=== PATIENT | female | born 1950 | race African-American/Black ===

== ENCOUNTER 2017-01-20 06:46 | Inpatient (IN) | payer MEDICARE, MEDICAID ==
[2017-01-20] VITALS (8 sets, daily range): BP systolic 115–154; BP diastolic 75–92
[~2017-01-20] VITALS: Ht 154.9 cm; Wt 60.0 kg
[~2017-01-20 06:46] MED LIST: AMLO10TA4 PO
[2017-01-20] MEDS ORDERED: ALBUTEROL (0.083%) 2.5MG/3ML NEB HHN STA (06:49)
[2017-01-20] MEDS ORDERED: SODIUM CHLORIDE 0.9% 1,000 ML IV ONE (06:49)
[2017-01-20] MEDS ORDERED: IPRATROPIUM BROMIDE (0.02%) 0.5MG/2.5ML NEB HHN STA (06:49)
[2017-01-20] MEDS ORDERED: METHYLPREDNISOLONE SOD SUCC 125 MG/2 ML VIAL IV STA (06:49)
[2017-01-20] MEDS ORDERED: METHYLPREDNISOLONE SOD SUCC 125 MG/2 ML VIAL ONE (06:55)
[2017-01-20] MEDS ORDERED: IPRATROPIUM/ALBUTEROL 0.5-3(2.5)MG/3ML NEB ONE (06:58)
[2017-01-20] MEDS ORDERED: EPINEPHRINE 1:1000 1 MG/ML AMP IM ONE (07:00)
[2017-01-20] MEDS ORDERED: MAGNESIUM 2 G PREMIX 50 ML IV ONE (07:00)
[2017-01-20 07:17] LABS: BASOPHILS % 1.3 % (0.0-2.0); EOSINOPHILS % 4.9 % (0.0-5.0); HEMATOCRIT. 37.6 % (36.0-48.0); LYMPHOCYTES % 15.4 % (20.0-50.0); MEAN CORPUSCULAR HEMOGLOBIN 26.6 pg (28.0-32.0); MEAN CORPUSCULAR VOLUME 83.8 fL (81.0-99.0); MEAN PLATELET VOLUME 9.3 fl (7.4-10.4); MONOCYTES % 7.9 % (2.0-8.0); NEUTROPHILS % 70.5 % (40.0-76.0); PLATELET 213 x1000/uL (130-400); RED BLOOD CELL COUNT 4.49 mill/uL (4.2-5.4); RED CELL DISTRIBUTION WIDTH 15.9 % (11.6-14.6)
[2017-01-20 07:25] LABS: PARTIAL THROMBOPLASTIN TIME 28.4 sec (24.0-34.0); PROTHROMBIN TIME 10.7 sec
[2017-01-20 07:30] LABS: CARBON DIOXIDE 29 mEq/L (21-32); CHLORIDE 101 mEq/L (98-107)
[2017-01-20 07:34] LABS: TROPONIN I < 0.02 ng/mL (0.00-0.04)
[2017-01-20 07:37] LABS: BG BASE EXCESS -1.3 mmol/L (-2.0-2.0); BG BILEVEL POS AIRWAY PRESSURE 15/5; BG CARBOXYHEMOGLOBIN 0.3 % (0.5-1.5); BG DEOXYHEMOGLOBIN 1.8 % (0.0-5.0); BG HCO3 ACT 26.9 mmol/L (22.0-26.0); BG METHEMOGLOBIN 0.1 % (0.0-1.5); BG OXYGEN SATURATION 98.2 % (92.0-98.5); BG OXYHEMOGLOBIN 97.8 % (94.0-97.0); BG PCO2 61.4 mmHg (35.0-45.0); BG PH 7.259 (7.350-7.450); BG PO2 124.7 mmHg (75.0-100.0); BG SAMPLE SITE RIGHT RADIAL; BG TOTAL HEMOGLOBIN 12.9 g/dL (12.0-18.0); BG VENT MODE MASK - BIPAP; BG VENT RATE 18 set
[2017-01-20] MEDS ORDERED: IPRATROPIUM/ALBUTEROL 0.5-3(2.5)MG/3ML NEB INH PRN (10:45)
[2017-01-20] MEDS ORDERED: HYDROMORPHONE HCL/PF 2MG/ML CPJ IV PRN (10:45)
[2017-01-20] MEDS ORDERED: ACETAMINOPHEN 325MG TABLET PO PRN (10:45)
[2017-01-20] MEDS ORDERED: CLONIDINE 0.1MG TABLET PO PRN (10:45)
[2017-01-20] MEDS ORDERED: DOCUSATE SODIUM 100MG CAPSULE PO PRN (10:45)
[2017-01-20] MEDS ORDERED: NA PHOS,M-B/NA PHOS,DI-BA ENEMA 118ML PR PRN (10:45)
[2017-01-20] MEDS ORDERED: ONDANSETRON HCL 4MG/2ML VIAL IV PRN (10:45)
[2017-01-20] MEDS ORDERED: MAGNESIUM/ALUMINUM HYDROXIDE/SIMETHICONE 30ML UDC PO PRN (10:45)
[2017-01-20] MEDS ORDERED: LEVOFLOXACIN 500MG PREMIX 100 ML IV NR (12:00)
[2017-01-20] MEDS: SODIUM CHLORIDE 0.45% 1,000 ML IV SCH (12:17)
[2017-01-20] MEDS: METHYLPREDNISOLONE SOD SUCC 125 MG/2 ML VIAL IV SCH ×3 (12:27→23:31)
[2017-01-20] MEDS: ENOXAPARIN 30MG/0.3ML SYR SUBCUT SCH (12:28)
[2017-01-20] MEDS: FAMOTIDINE 20MG/2ML VIAL IV SCH (12:29)
[2017-01-20] MEDS: BUDESONIDE 0.5MG/2ML NEB HHN SCH ×2 (12:46→20:27)
[2017-01-20] MEDS: IPRATROPIUM/ALBUTEROL 0.5-3(2.5)MG/3ML NEB HHN PRN ×3 (12:46→20:28)
[2017-01-20] MEDS ORDERED: NICOTINE 21MG PATCH TD SCH (13:00)
[2017-01-20 15:44] LABS: CLARITY URINE TURBID (CLEAR); COLOR URINE DARK YELLOW (YELLOW); GLUCOSE URINE NEGATIVE (NEGATIVE); KETONES URINE NEGATIVE (NEGATIVE); LEUKOCYTE ESTERASE URINE 2+ (NEGATIVE); NITRITE URINE NEGATIVE (NEGATIVE); OCCULT BLOOD URINE 2+ (NEGATIVE); PROTEIN URINE TRACE (NEGATIVE); SPECIFIC GRAVITY URINE 1.023 (1.005-1.030); UROBILINOGEN URINE 0.2 E.U./dL (0.2-1.0)
[2017-01-20 15:56] LABS: *AMPHETAMINES SCREEN URINE NEGATIVE (NEGATIVE); *BARBITURATES SCREEN URINE NEGATIVE (NEGATIVE); *BENZODIAZEPINES SCREEN URINE NEGATIVE (NEGATIVE); *COCAINE SCREEN URINE PRESUMTIVE POSITIVE (NEGATIVE); CANNABINOID URINE SCREEN NEGATIVE (NEGATIVE); METHADONE URINE SCREEN NEGATIVE (NEGATIVE); OPIATES URINE SCREEN NEGATIVE (NEGATIVE); PHENCYCLIDINE URINE SCREEN NEGATIVE (NEGATIVE)
[2017-01-20] MEDS: GUAIFENESIN 200MG/10ML SUGAR FREE UDC PO PRN ×2 (16:42→21:12)
[2017-01-20] MEDS: HYDROCODONE/ACETAMINOPHEN 5/325MG TABLET PO PRN ×2 (16:46→21:11)
[2017-01-20] MEDS: LORAZEPAM 2MG/ML CPJ IV PRN (20:35)
[2017-01-21] VITALS (18 sets, daily range): BP systolic 3–164; BP diastolic 18–92
[2017-01-21] MEDS: IPRATROPIUM/ALBUTEROL 0.5-3(2.5)MG/3ML NEB HHN PRN ×6 (00:11→21:45)
[2017-01-21] MEDS: METHYLPREDNISOLONE SOD SUCC 125 MG/2 ML VIAL IV SCH ×4 (05:18→23:35)
[2017-01-21] MEDS: SODIUM CHLORIDE 0.45% 1,000 ML IV SCH (05:41)
[2017-01-21 06:23] LABS: HEMATOCRIT. 33.8 % (36.0-48.0); HEMOGLOBIN. 10.6 g/dL (12.0-16.0); MEAN CORPUSCULAR HEMOGLOBIN 26.2 pg (28.0-32.0); MEAN CORPUSCULAR VOLUME 83.9 fL (81.0-99.0); MEAN PLATELET VOLUME 9.9 fl (7.4-10.4); PLATELET 198 x1000/uL (130-400); RED BLOOD CELL COUNT 4.03 mill/uL (4.2-5.4); RED CELL DISTRIBUTION WIDTH 15.4 % (11.6-14.6)
[2017-01-21 06:52] LABS: CHLORIDE 101 mEq/L (98-107)
[2017-01-21 07:05] LABS: CARBON DIOXIDE 28 mEq/L (21-32); HDL CHOLESTEROL 93 mg/dL (40-59); LDL CHOLESTEROL 79 mg/dL (5-100)
[2017-01-21] MEDS: LORAZEPAM 2MG/ML CPJ IV PRN (07:24)
[2017-01-21] MEDS: GUAIFENESIN 200MG/10ML SUGAR FREE UDC PO PRN ×2 (07:24→20:11)
[2017-01-21] MEDS: BUDESONIDE 0.5MG/2ML NEB HHN SCH ×2 (07:34→21:45)
[2017-01-21] MEDS: ASPIRIN 81MG EC TABLET PO SCH (08:49)
[2017-01-21] MEDS: FAMOTIDINE 20MG/2ML VIAL IV SCH (08:52)
[2017-01-21] MEDS: NICOTINE 21MG PATCH TD SCH (08:54)
[2017-01-21] MEDS ORDERED: SODIUM POLYSTYRENE SULFONATE 15 G/60 ML BOT PO NR ×2 (09:45→10:46)
[2017-01-21 10:05] LABS: PLATELET ESTIMATE NORMAL
[2017-01-21] MEDS: LEVOFLOXACIN 250MG PREMIX 50 ML IV SCH (11:01)
[2017-01-21] MEDS: HYDROCODONE/ACETAMINOPHEN 5/325MG TABLET PO PRN (11:02)
[2017-01-21] MEDS: ENOXAPARIN 30MG/0.3ML SYR SUBCUT SCH (11:03)
[2017-01-21 14:47] LABS: BG BASE EXCESS 0.1 mmol/L (-2.0-2.0); BG CARBOXYHEMOGLOBIN 0.3 % (0.5-1.5); BG DEOXYHEMOGLOBIN 5.4 % (0.0-5.0); BG FRACTION INSPIRED OXYGEN 28; BG HCO3 ACT 25.1 mmol/L (22.0-26.0); BG METHEMOGLOBIN 0.2 % (0.0-1.5); BG OXYGEN SATURATION 94.6 % (92.0-98.5); BG OXYHEMOGLOBIN 94.1 % (94.0-97.0); BG PH 7.394 (7.350-7.450); BG PO2 72.4 mmHg (75.0-100.0); BG SAMPLE SITE RIGHT BRACHIAL; BG TOTAL HEMOGLOBIN 11.9 g/dL (12.0-18.0); BG VENT MODE NASAL CANNULA
[2017-01-21] MEDS: THEOPHYLLINE ANHYDROUS 80 MG/15 ML 120ML PO SCH ×2 (15:18→21:30)
[2017-01-22] VITALS (12 sets, daily range): BP systolic 115–155; BP diastolic 60–98
[2017-01-22] MEDS: IPRATROPIUM/ALBUTEROL 0.5-3(2.5)MG/3ML NEB HHN PRN ×7 (01:29→23:50)
[2017-01-22] MEDS: GUAIFENESIN 200MG/10ML SUGAR FREE UDC PO PRN ×2 (03:39→21:27)
[2017-01-22] MEDS: THEOPHYLLINE ANHYDROUS 80 MG/15 ML 120ML PO SCH ×3 (05:38→21:27)
[2017-01-22] MEDS: METHYLPREDNISOLONE SOD SUCC 125 MG/2 ML VIAL IV SCH ×4 (05:38→23:24)
[2017-01-22 07:41] LABS: HEMATOCRIT. 33.7 % (36.0-48.0); HEMOGLOBIN. 10.8 g/dL (12.0-16.0); MEAN CORPUSCULAR HEMOGLOBIN 26.4 pg (28.0-32.0); MEAN CORPUSCULAR VOLUME 82.4 fL (81.0-99.0); MEAN PLATELET VOLUME 9.5 fl (7.4-10.4); PLATELET 206 x1000/uL (130-400); RED BLOOD CELL COUNT 4.09 mill/uL (4.2-5.4); RED CELL DISTRIBUTION WIDTH 15.9 % (11.6-14.6)
[2017-01-22] MEDS: BUDESONIDE 0.5MG/2ML NEB HHN SCH ×2 (08:25→20:16)
[2017-01-22] MEDS: NICOTINE 21MG PATCH TD SCH (08:46)
[2017-01-22] MEDS: ASPIRIN 81MG EC TABLET PO SCH (08:46)
[2017-01-22] MEDS: FAMOTIDINE 20MG/2ML VIAL IV SCH (08:46)
[2017-01-22 09:05] LABS: PLATELET ESTIMATE NORMAL
[2017-01-22] MEDS: LEVOFLOXACIN 250MG PREMIX 50 ML IV SCH (11:07)
[2017-01-22] MEDS: ENOXAPARIN 30MG/0.3ML SYR SUBCUT SCH (11:07)
[2017-01-22] MEDS: DIPHENHYDRAMINE 50MG/ML VIAL IV PRN (23:24)
[2017-01-22] MEDS: LORAZEPAM 2MG/ML CPJ IV PRN (23:24)
[2017-01-23] VITALS (14 sets, daily range): BP systolic 115–167; BP diastolic 59–98
[2017-01-23] MEDS: IPRATROPIUM/ALBUTEROL 0.5-3(2.5)MG/3ML NEB HHN PRN ×5 (04:08→20:33)
[2017-01-23] MEDS: THEOPHYLLINE ANHYDROUS 80 MG/15 ML 120ML PO SCH ×3 (05:23→22:38)
[2017-01-23] MEDS: METHYLPREDNISOLONE SOD SUCC 125 MG/2 ML VIAL IV SCH ×4 (05:23→23:39)
[2017-01-23 05:42] LABS: HEMATOCRIT. 32.8 % (36.0-48.0); HEMOGLOBIN. 10.5 g/dL (12.0-16.0); MEAN CORPUSCULAR HEMOGLOBIN 26.4 pg (28.0-32.0); MEAN CORPUSCULAR VOLUME 82.3 fL (81.0-99.0); MEAN PLATELET VOLUME 8.9 fl (7.4-10.4); PLATELET 187 x1000/uL (130-400); RED BLOOD CELL COUNT 3.99 mill/uL (4.2-5.4); RED CELL DISTRIBUTION WIDTH 15.5 % (11.6-14.6)
[2017-01-23] MEDS: BUDESONIDE 0.5MG/2ML NEB HHN SCH (08:38)
[2017-01-23] MEDS: NICOTINE 21MG PATCH TD SCH (08:57)
[2017-01-23] MEDS: ASPIRIN 81MG EC TABLET PO SCH (08:57)
[2017-01-23 09:09] LABS: PLATELET ESTIMATE NORMAL
[2017-01-23] MEDS: FAMOTIDINE 20MG/2ML VIAL IV SCH (10:40)
[2017-01-23] MEDS: ENOXAPARIN 30MG/0.3ML SYR SUBCUT SCH (10:40)
[2017-01-23] MEDS: LEVOFLOXACIN 250MG PREMIX 50 ML IV SCH (10:40)
[2017-01-23] MEDS: GUAIFENESIN 200MG/10ML SUGAR FREE UDC PO PRN (20:36)
[2017-01-23] MEDS: LORAZEPAM 2MG/ML CPJ IV PRN (20:37)
[2017-01-23] MEDS: HYDROCODONE/ACETAMINOPHEN 5/325MG TABLET PO PRN (20:50)
[2017-01-23] MEDS: DIPHENHYDRAMINE 50MG/ML VIAL IV PRN (22:38)
[2017-01-24] VITALS (13 sets, daily range): BP systolic 113–160; BP diastolic 61–94
[2017-01-24] MEDS: IPRATROPIUM/ALBUTEROL 0.5-3(2.5)MG/3ML NEB HHN PRN ×4 (00:24→11:07)
[2017-01-24 05:27] LABS: HEMATOCRIT. 31.8 % (36.0-48.0); HEMOGLOBIN. 10.2 g/dL (12.0-16.0); MEAN CORPUSCULAR HEMOGLOBIN 26.3 pg (28.0-32.0); MEAN CORPUSCULAR VOLUME 82.1 fL (81.0-99.0); MEAN PLATELET VOLUME 9.3 fl (7.4-10.4); PLATELET 185 x1000/uL (130-400); RED BLOOD CELL COUNT 3.88 mill/uL (4.2-5.4); RED CELL DISTRIBUTION WIDTH 16.2 % (11.6-14.6)
[2017-01-24] MEDS: METHYLPREDNISOLONE SOD SUCC 125 MG/2 ML VIAL IV SCH ×3 (05:54→20:36)
[2017-01-24] MEDS: THEOPHYLLINE ANHYDROUS 80 MG/15 ML 120ML PO SCH (05:55)
[2017-01-24] MEDS: NICOTINE 21MG PATCH TD SCH ×2 (09:00→11:17)
[2017-01-24] MEDS: ASPIRIN 81MG EC TABLET PO SCH (09:37)
[2017-01-24] MEDS: FAMOTIDINE 20MG/2ML VIAL IV SCH (09:37)
[2017-01-24] MEDS: ENOXAPARIN 30MG/0.3ML SYR SUBCUT SCH (11:16)
[2017-01-24] MEDS: LEVOFLOXACIN 250MG PREMIX 50 ML IV SCH (11:17)
[2017-01-24 11:20] LABS: PLATELET ESTIMATE NORMAL
[2017-01-24] MEDS ORDERED: METHYLPREDNISOLONE SOD SUCC 40 MG/ML VIAL IV SCH (12:00)
[2017-01-24 13:28] LABS: BG BASE EXCESS 0.7 mmol/L (-2.0-2.0); BG CARBOXYHEMOGLOBIN 0.3 % (0.5-1.5); BG DEOXYHEMOGLOBIN 4.1 % (0.0-5.0); BG FRACTION INSPIRED OXYGEN 28; BG HCO3 ACT 24.5 mmol/L (22.0-26.0); BG OXYGEN SATURATION 95.9 % (92.0-98.5); BG OXYHEMOGLOBIN 95.6 % (94.0-97.0); BG PO2 79.5 mmHg (75.0-100.0); BG SAMPLE SITE LEFT BRACHIAL; BG TOTAL HEMOGLOBIN 11.9 g/dL (12.0-18.0); BG VENT MODE NASAL CANNULA
[2017-01-24] MEDS: IPRATROPIUM/ALBUTEROL 0.5-3(2.5)MG/3ML NEB HHN SCH ×3 (15:25→23:54)
[2017-01-24] MEDS: BUDESONIDE 0.5MG/2ML NEB HHN SCH ×2 (15:26→20:13)
[2017-01-24] MEDS: GUAIFENESIN 200MG/10ML SUGAR FREE UDC PO PRN (20:36)
[2017-01-24] MEDS: LORAZEPAM 2MG/ML CPJ IV PRN (20:37)
[2017-01-24] MEDS: DIPHENHYDRAMINE 50MG/ML VIAL IV PRN (20:37)
[2017-01-25] VITALS (10 sets, daily range): BP systolic 114–157; BP diastolic 55–86
[2017-01-25] MEDS: IPRATROPIUM/ALBUTEROL 0.5-3(2.5)MG/3ML NEB HHN SCH ×4 (03:41→16:24)
[2017-01-25] MEDS: METHYLPREDNISOLONE SOD SUCC 125 MG/2 ML VIAL IV SCH ×2 (04:16→11:11)
[2017-01-25 07:01] LABS: HEMATOCRIT. 32.2 % (36.0-48.0); HEMOGLOBIN. 10.2 g/dL (12.0-16.0); MEAN CORPUSCULAR HEMOGLOBIN 26.2 pg (28.0-32.0); MEAN CORPUSCULAR VOLUME 82.3 fL (81.0-99.0); MEAN PLATELET VOLUME 9.6 fl (7.4-10.4); PLATELET 192 x1000/uL (130-400); RED BLOOD CELL COUNT 3.91 mill/uL (4.2-5.4); RED CELL DISTRIBUTION WIDTH 15.6 % (11.6-14.6)
[2017-01-25] MEDS: BUDESONIDE 0.5MG/2ML NEB HHN SCH (07:56)
[2017-01-25] MEDS: ASPIRIN 81MG EC TABLET PO SCH (08:18)
[2017-01-25] MEDS: LORAZEPAM 2MG/ML CPJ IV PRN ×3 (08:27→17:22)
[2017-01-25] MEDS ORDERED: FAMOTIDINE 20MG TABLET PO SCH (09:00)
[2017-01-25] MEDS ORDERED: HYDROCODONE/ACETAMINOPHEN 5/325MG TABLET PO PRN (10:45)
[2017-01-25] MEDS ORDERED: LEVOFLOXACIN 250MG TABLET PO SCH (11:00)
[2017-01-25] MEDS: ENOXAPARIN 30MG/0.3ML SYR SUBCUT SCH (11:11)
[2017-01-25] MEDS: DIPHENHYDRAMINE 50MG/ML VIAL IV PRN (14:27)
[2017-01-25 20:09] LABS: PLATELET ESTIMATE NORMAL
[2017-01-27] MEDS ORDERED: BUDESONIDE 0.5MG/2ML NEB HHN SCH (13:00)
[2017-01-30] MEDS ORDERED: BUDESONIDE 0.5MG/2ML NEB HHN SCH (13:00)
== END 2017-01-25 17:55 | disposition home health service (06) | DRG 871 ==
LOC: ER 06:50 → 5EST 08:32 → EDBEDREQ 08:34 → ENRESERV 09:23
PROVIDERS: ADMIT Internal Medicine; ATTEND Internal Medicine
PROC: 5A09357 Assistance with Respiratory Ventilation, Less than 24 Consecutive Hours, Continuous Positive Airway Pressure (ICD-10-PCS; principal; 2017-01-20)
DX: A41.9 Sepsis, unspecified organism (principal); J96.02 Acute respiratory failure with hypercapnia; N17.0 Acute kidney failure with tubular necrosis; J18.9 Pneumonia, unspecified organism; J44.1 Chronic obstructive pulmonary disease with (acute) exacerbation; N39.0 Urinary tract infection, site not specified; I12.9 Hypertensive chronic kidney disease with stage 1 through stage 4 chronic kidney disease, or unspecified chronic kidney disease; E78.5 Hyperlipidemia, unspecified; E87.5 Hyperkalemia; F14.10 Cocaine abuse, uncomplicated; F17.210 Nicotine dependence, cigarettes, uncomplicated; F32.9 Major depressive disorder, single episode, unspecified; F41.9 Anxiety disorder, unspecified; N18.3 Chronic kidney disease, stage 3 (moderate); N27.0 Small kidney, unilateral; Z82.49 Family history of ischemic heart disease and other diseases of the circulatory system; Z83.3 Family history of diabetes mellitus; Z90.710 Acquired absence of both cervix and uterus; Z79.899 Other long term (current) drug therapy; Z90.89 Acquired absence of other organs; Z71.6 Tobacco abuse counseling; Z99.81 Dependence on supplemental oxygen
CPT/HCPCS: 36415; 36600; 71010; 80048; 80053; 80061; 80305; 81001; 82375; 82805; 83605; 83880; 84439; 84443; 84484; 85025; 85610; 85730; 87015; 87040; 87045; 87427; 87449; 87493; 93005; 93306; 94640; 94660; 94664; 96365; 96366; 96375; 99291; A6261; J1200; J1650; J1956; J2060; J2930; J3475; J3490; J7030; J7620; J7626

== ENCOUNTER 2017-12-15 11:44 | Inpatient (IN) | payer MEDICARE, MEDICAID ==
[~2017-12-15] VITALS: Ht 154.9 cm; Wt 58.1 kg
[~2017-12-15 11:44] MED LIST changes: +ASPI-1158 PO; +BISA-81 PO; +FERR-71 PO
[2017-12-15] MEDS ORDERED: METHYLPREDNISOLONE SOD SUCC 125 MG/2 ML VIAL IV STA (12:21)
[2017-12-15] MEDS ORDERED: MORPHINE SULFATE 4 MG/ML CPJ (NOT FOR IM USE) IV STA (12:21)
[2017-12-15] MEDS ORDERED: ASPIRIN 81MG TABLET PO STA (12:21)
[2017-12-15] MEDS ORDERED: ONDANSETRON HCL 4MG/2ML VIAL IV STA (12:21)
[2017-12-15] MEDS ORDERED: SODIUM CHLORIDE 0.9% 500 ML IV ONE (12:21)
[2017-12-15] MEDS ORDERED: MAGNESIUM 2 G PREMIX 50 ML IV ONE (12:30)
[2017-12-15] MEDS ORDERED: IPRATROPIUM/ALBUTEROL 0.5-3(2.5)MG/3ML NEB HHN ONE (12:30)
[2017-12-15] MEDS ORDERED: LEVOFLOXACIN 750MG PREMIX 150 ML IV ONE ×2 (12:30→14:15)
[2017-12-15 12:52] LABS: BG BASE EXCESS -0.6 mmol/L (-2.0-2.0); BG CARBOXYHEMOGLOBIN 0.2 % (0.5-1.5); BG DEOXYHEMOGLOBIN 1.2 % (0.0-5.0); BG FRACTION INSPIRED OXYGEN 60; BG HCO3 ACT 25.1 mmol/L (22.0-26.0); BG METHEMOGLOBIN 0.2 % (0.0-1.5); BG OXYGEN SATURATION 98.8 % (92.0-98.5); BG OXYHEMOGLOBIN 98.4 % (94.0-97.0); BG PCO2 45.3 mmHg (35.0-45.0); BG PH 7.361 (7.350-7.450); BG PO2 147.2 mmHg (75.0-100.0); BG SAMPLE SITE RIGHT RADIAL; BG TOTAL HEMOGLOBIN 11.7 g/dL (12.0-18.0)
[2017-12-15 13:09] LABS: BASOPHILS % 0.2 % (0.0-2.0); EOSINOPHILS % 8.7 % (0.0-5.0); HEMATOCRIT. 35.8 % (36.0-48.0); HEMOGLOBIN. 11.1 g/dL (12.0-16.0); LYMPHOCYTES % 22.2 % (20.0-50.0); MEAN CORPUSCULAR HEMOGLOBIN 25.3 pg (28.0-32.0); MEAN CORPUSCULAR VOLUME 81.8 fL (81.0-99.0); MEAN PLATELET VOLUME 9.1 fl (7.4-10.4); NEUTROPHILS % 60.9 % (40.0-76.0); PLATELET 236 x1000/uL (130-400); RED BLOOD CELL COUNT 4.38 mill/uL (4.2-5.4); RED CELL DISTRIBUTION WIDTH 17.9 % (11.6-14.6)
[2017-12-15 13:10] LABS: CHLORIDE 103 mEq/L (98-107)
[2017-12-15 13:19] LABS: CREATINE KINASE 85 IU/L (26-192)
[2017-12-15 13:36] LABS: PARTIAL THROMBOPLASTIN TIME 28.5 sec (23.4-31.0); PROTHROMBIN TIME 10.7 sec (9.4-11.6)
[2017-12-15 14:56] LABS: CLARITY URINE CLEAR (CLEAR); COLOR URINE YELLOW (YELLOW); KETONES URINE NEGATIVE (NEGATIVE); LEUKOCYTE ESTERASE URINE NEGATIVE (NEGATIVE); NITRITE URINE NEGATIVE (NEGATIVE); OCCULT BLOOD URINE TRACE (NEGATIVE); PROTEIN URINE NEGATIVE (NEGATIVE); SPECIFIC GRAVITY URINE 1.012 (1.005-1.030); UROBILINOGEN URINE 0.2 E.U./dL (0.2-1.0)
[2017-12-15 16:00] VITALS: BP 123/57
[2017-12-15] MEDS ORDERED: IPRATROPIUM/ALBUTEROL 0.5-3(2.5)MG/3ML NEB HHN PRN (16:45)
[2017-12-15] MEDS ORDERED: DOCUSATE SODIUM 100MG CAPSULE PO PRN (17:00)
[2017-12-15] MEDS ORDERED: CLONIDINE 0.1MG TABLET PO PRN (17:00)
[2017-12-15] MEDS ORDERED: IPRATROPIUM/ALBUTEROL 0.5-3(2.5)MG/3ML NEB INH PRN (17:00)
[2017-12-15] MEDS ORDERED: NA PHOS,M-B/NA PHOS,DI-BA ENEMA 118ML PR PRN (17:00)
[2017-12-15] MEDS ORDERED: DIPHENHYDRAMINE 50MG/ML VIAL IV PRN (17:00)
[2017-12-15] MEDS ORDERED: ACETAMINOPHEN 325MG TABLET PO PRN (17:00)
[2017-12-15] MEDS ORDERED: ONDANSETRON HCL 4MG/2ML VIAL IV PRN (17:00)
[2017-12-15] MEDS ORDERED: MAGNESIUM/ALUMINUM HYDROXIDE/SIMETHICONE 30ML UDC PO PRN (17:00)
[2017-12-15] MEDS ORDERED: MONT10TA24 PO (18:14)
[2017-12-15] MEDS ORDERED: ALBU6.7H3 INH (18:14)
[2017-12-15] MEDS ORDERED: NEPVIT MT (18:14)
[2017-12-15] MEDS ORDERED: CHOL100046 MT (18:14)
[2017-12-15 18:16] VITALS: BP 123/57
[2017-12-15] MEDS: METHYLPREDNISOLONE SOD SUCC 125 MG/2 ML VIAL IV SCH ×2 (18:44→23:48)
[2017-12-15] MEDS: ENOXAPARIN 30MG/0.3ML SYR SUBCUT SCH (18:45)
[2017-12-15 20:00] VITALS: BP 122/72
[2017-12-15] MEDS: IPRATROPIUM/ALBUTEROL 0.5-3(2.5)MG/3ML NEB HHN SCH (20:19)
[2017-12-15] MEDS: BUDESONIDE 0.5MG/2ML NEB HHN SCH (20:20)
[2017-12-15] MEDS: GUAIFENESIN 200MG/10ML SUGAR FREE UDC PO PRN (20:47)
[2017-12-15] MEDS: MORPHINE SULFATE 4 MG/ML CPJ (NOT FOR IM USE) IV PRN (20:48)
[2017-12-15] MEDS ORDERED: METHYLPREDNISOLONE SOD SUCC 40 MG/ML VIAL IV SCH (22:00)
[2017-12-16] VITALS: BP 122/54
[2017-12-16] MEDS: IPRATROPIUM/ALBUTEROL 0.5-3(2.5)MG/3ML NEB HHN SCH ×6 (00:09→21:28)
[2017-12-16 01:05] LABS: *BENZODIAZEPINES SCREEN URINE NEGATIVE (NEGATIVE); *COCAINE SCREEN URINE PRESUMTIVE POSITIVE (NEGATIVE); METHADONE URINE SCREEN NEGATIVE (NEGATIVE); OPIATES URINE SCREEN PRESUMTIVE POSITIVE (NEGATIVE); PHENCYCLIDINE URINE SCREEN NEGATIVE (NEGATIVE)
[2017-12-16 01:06] LABS: *AMPHETAMINES SCREEN URINE NEGATIVE (NEGATIVE); *BARBITURATES SCREEN URINE NEGATIVE (NEGATIVE); CANNABINOID URINE SCREEN NEGATIVE (NEGATIVE)
[2017-12-16] MEDS: GUAIFENESIN 200MG/10ML SUGAR FREE UDC PO PRN ×2 (04:12→20:41)
[2017-12-16] MEDS: MORPHINE SULFATE 4 MG/ML CPJ (NOT FOR IM USE) IV PRN ×2 (04:30→20:44)
[2017-12-16] MEDS: METHYLPREDNISOLONE SOD SUCC 125 MG/2 ML VIAL IV SCH ×4 (06:27→23:40)
[2017-12-16 08:00] VITALS: BP 117/77
[2017-12-16] MEDS: BUDESONIDE 0.5MG/2ML NEB HHN SCH ×2 (08:32→21:29)
[2017-12-16] MEDS: ASPIRIN 81MG EC TABLET PO SCH (09:20)
[2017-12-16 10:12] LABS: HEMATOCRIT. 32.5 % (36.0-48.0); HEMOGLOBIN. 10.1 g/dL (12.0-16.0); MEAN CORPUSCULAR HEMOGLOBIN 25.2 pg (28.0-32.0); MEAN CORPUSCULAR VOLUME 81.1 fL (81.0-99.0); MEAN PLATELET VOLUME 9.3 fl (7.4-10.4); PLATELET 222 x1000/uL (130-400); RED CELL DISTRIBUTION WIDTH 17.6 % (11.6-14.6)
[2017-12-16 10:36] LABS: CHLORIDE 101 mEq/L (98-107)
[2017-12-16 10:45] LABS: HDL CHOLESTEROL 104 mg/dL (40-59)
[2017-12-16 10:46] LABS: LDL CHOLESTEROL 114 mg/dL (5-100)
[2017-12-16 10:47] LABS: T4 FREE 0.86 ng/dL (0.76-1.46)
[2017-12-16] MEDS: AMLODIPINE 10MG TABLET PO SCH (11:33)
[2017-12-16 12:00] VITALS: BP 122/81
[2017-12-16] MEDS ORDERED: LIDOCAINE HCL/PF 1% 2ML VIAL ONE (13:22)
[2017-12-16] MEDS ORDERED: TERBUTALINE SULFATE 1MG/ML VIAL SUBCUT NR (14:30)
[2017-12-16 14:42] LABS: BG BASE EXCESS 1.4 mmol/L (-2.0-2.0); BG CARBOXYHEMOGLOBIN 0.4 % (0.5-1.5); BG DEOXYHEMOGLOBIN 8.5 % (0.0-5.0); BG HCO3 ACT 26.8 mmol/L (22.0-26.0); BG METHEMOGLOBIN 0.2 % (0.0-1.5); BG OXYHEMOGLOBIN 90.9 % (94.0-97.0); BG PCO2 45.7 mmHg (35.0-45.0); BG PH 7.386 (7.350-7.450); BG PO2 64.2 mmHg (75.0-100.0); BG SAMPLE SITE RIGHT RADIAL; BG TOTAL HEMOGLOBIN 11.2 g/dL (12.0-18.0); BG VENT MODE NASAL CANNULA
[2017-12-16] MEDS: ENOXAPARIN 30MG/0.3ML SYR SUBCUT SCH (17:18)
[2017-12-16 20:00] VITALS: BP 131/77
[2017-12-16] MEDS: LORAZEPAM 2MG/ML CPJ IV PRN (22:50)
[2017-12-16 23:37] LABS: LDL CHOLESTEROL 127 mg/dL (5-100)
[2017-12-16 23:38] LABS: CREATINE KINASE 77 IU/L (26-192)
[2017-12-16 23:39] LABS: HDL CHOLESTEROL 109 mg/dL (40-59); T4 FREE 0.88 ng/dL (0.76-1.46)
[2017-12-17] MEDS: IPRATROPIUM/ALBUTEROL 0.5-3(2.5)MG/3ML NEB HHN SCH ×6 (00:40→20:46)
[2017-12-17 04:00] VITALS: BP 112/51
[2017-12-17] MEDS: METHYLPREDNISOLONE SOD SUCC 125 MG/2 ML VIAL IV SCH (06:43)
[2017-12-17 08:06] LABS: CREATINE KINASE 59 IU/L (26-192)
[2017-12-17 08:07] LABS: CREATINE KINASE MB FRACTION 1.3 ng/mL (0.5-3.6)
[2017-12-17 08:30] VITALS: BP 112/63
[2017-12-17] MEDS: ASPIRIN 81MG EC TABLET PO SCH (09:18)
[2017-12-17] MEDS: BUDESONIDE 0.5MG/2ML NEB HHN SCH ×2 (09:19→20:45)
[2017-12-17] MEDS: AMLODIPINE 10MG TABLET PO SCH (09:20)
[2017-12-17] MEDS ORDERED: TERBUTALINE SULFATE 1MG/ML VIAL SUBCUT NR (10:15)
[2017-12-17 12:00] VITALS: BP 107/63
[2017-12-17] MEDS: HYDROCODONE/ACETAMINOPHEN 10/325MG TABLET PO PRN ×2 (13:46→21:02)
[2017-12-17] MEDS: GUAIFENESIN 200MG/10ML SUGAR FREE UDC PO PRN ×2 (13:46→21:01)
[2017-12-17] MEDS ORDERED: LEVOFLOXACIN 500MG PREMIX 100 ML IV SCH (14:00)
[2017-12-17] MEDS: METHYLPREDNISOLONE SOD SUCC 40 MG/ML VIAL IV SCH ×2 (14:05→21:01)
[2017-12-17 16:00] VITALS: BP 101/49
[2017-12-17 16:17] LABS: CREATINE KINASE 56 IU/L (26-192)
[2017-12-17 16:18] LABS: CREATINE KINASE MB FRACTION 1.2 ng/mL (0.5-3.6)
[2017-12-17] MEDS: ENOXAPARIN 30MG/0.3ML SYR SUBCUT SCH (16:45)
[2017-12-17 20:00] VITALS: BP 115/64
[2017-12-17] MEDS: LORAZEPAM 2MG/ML CPJ IV PRN (22:00)
[2017-12-18] VITALS: BP 114/64
[2017-12-18] MEDS: IPRATROPIUM/ALBUTEROL 0.5-3(2.5)MG/3ML NEB HHN SCH ×6 (00:31→20:30)
[2017-12-18 00:55] LABS: PLATELET ESTIMATE NORMAL
[2017-12-18 04:00] VITALS: BP 106/52
[2017-12-18] MEDS: GUAIFENESIN 200MG/10ML SUGAR FREE UDC PO PRN ×3 (05:42→21:21)
[2017-12-18] MEDS: METHYLPREDNISOLONE SOD SUCC 40 MG/ML VIAL IV SCH (05:42)
[2017-12-18 08:00] VITALS: BP 119/74
[2017-12-18] MEDS: BUDESONIDE 0.5MG/2ML NEB HHN SCH ×2 (09:16→20:30)
[2017-12-18] MEDS: ASPIRIN 81MG EC TABLET PO SCH (09:40)
[2017-12-18] MEDS: AMLODIPINE 10MG TABLET PO SCH (09:40)
[2017-12-18 12:00] VITALS: BP 117/63
[2017-12-18] MEDS: PREDNISONE 20MG TABLET PO SCH (16:28)
[2017-12-18] MEDS: ENOXAPARIN 30MG/0.3ML SYR SUBCUT SCH (16:28)
[2017-12-18 20:00] VITALS: BP 111/70
[2017-12-18] MEDS: HYDROCODONE/ACETAMINOPHEN 10/325MG TABLET PO PRN (21:22)
[2017-12-18] MEDS: LORAZEPAM 2MG/ML CPJ IV PRN (22:58)
[2017-12-19] VITALS: BP 105/52
[2017-12-19] MEDS: IPRATROPIUM/ALBUTEROL 0.5-3(2.5)MG/3ML NEB HHN SCH ×4 (00:18→11:53)
[2017-12-19 04:00] VITALS: BP 110/54
[2017-12-19 06:10] LABS: HEMATOCRIT. 30.3 % (36.0-48.0); HEMOGLOBIN. 9.6 g/dL (12.0-16.0); MEAN CORPUSCULAR HEMOGLOBIN 25.6 pg (28.0-32.0); MEAN CORPUSCULAR VOLUME 80.8 fL (81.0-99.0); MEAN PLATELET VOLUME 9.4 fl (7.4-10.4); PLATELET 198 x1000/uL (130-400); RED BLOOD CELL COUNT 3.75 mill/uL (4.2-5.4); RED CELL DISTRIBUTION WIDTH 17.6 % (11.6-14.6)
[2017-12-19 08:00] VITALS: BP 124/79
[2017-12-19 08:54] VITALS: BP 110/54
[2017-12-19] MEDS: BUDESONIDE 0.5MG/2ML NEB HHN SCH (09:01)
[2017-12-19] MEDS: AMLODIPINE 10MG TABLET PO SCH (09:22)
[2017-12-19] MEDS: ASPIRIN 81MG EC TABLET PO SCH (09:22)
[2017-12-19] MEDS: PREDNISONE 20MG TABLET PO SCH (09:22)
[2017-12-19 17:39] LABS: PLATELET ESTIMATE NORMAL
== END 2017-12-19 12:50 | disposition home or self-care (01) | DRG 917 ==
LOC: ER 11:51 → 5WST 15:18 → EDBEDREQ 15:21 → ENRESERV 15:33
PROVIDERS: ADMIT Internal Medicine; ATTEND Internal Medicine
DX: T40.5X1A Poisoning by cocaine, accidental (unintentional), initial encounter (principal); J69.0 Pneumonitis due to inhalation of food and vomit; J96.21 Acute and chronic respiratory failure with hypoxia; N17.9 Acute kidney failure, unspecified; E46 Unspecified protein-calorie malnutrition; J44.1 Chronic obstructive pulmonary disease with (acute) exacerbation; I13.0 Hypertensive heart and chronic kidney disease with heart failure and stage 1 through stage 4 chronic kidney disease, or unspecified chronic kidney disease; J68.0 Bronchitis and pneumonitis due to chemicals, gases, fumes and vapors; I50.9 Heart failure, unspecified; D64.9 Anemia, unspecified; E78.5 Hyperlipidemia, unspecified; F17.210 Nicotine dependence, cigarettes, uncomplicated; F14.10 Cocaine abuse, uncomplicated; N18.9 Chronic kidney disease, unspecified; E11.22 Type 2 diabetes mellitus with diabetic chronic kidney disease; Z79.82 Long term (current) use of aspirin; Z79.899 Other long term (current) drug therapy; Z82.49 Family history of ischemic heart disease and other diseases of the circulatory system; Z87.01 Personal history of pneumonia (recurrent); Z83.3 Family history of diabetes mellitus; Z90.710 Acquired absence of both cervix and uterus; Z99.81 Dependence on supplemental oxygen; Z90.89 Acquired absence of other organs; Z71.6 Tobacco abuse counseling; Z68.24 Body mass index [BMI] 24.0-24.9, adult; Y92.89 Other specified places as the place of occurrence of the external cause
CPT/HCPCS: 36415; 36600; 71045; 80048; 80053; 80061; 80305; 81003; 82375; 82550; 82553; 82805; 83036; 83605; 83690; 83880; 84439; 84443; 84484; 85025; 85610; 85730; 87040; 93005; 93306; 94640; 96365; 96375; 99285; J1650; J1956; J2060; J2270; J2405; J2920; J2930; J3105; J3475; J3490; J7040; J7050; J7512; J7620; J7626

== ENCOUNTER 2018-09-17 14:16 | Inpatient (IN) | payer MEDICARE, MEDICAID ==
[~2018-09-17] VITALS: Ht 154.9 cm; Wt 59.4 kg
[~2018-09-17 14:16] MED LIST changes: +ALBU6.7H9 INH; +CHOL100046 MT; +MONT10TA24 PO; +NEPVIT MT
[2018-09-17] MEDS ORDERED: METHYLPREDNISOLONE SOD SUCC 125 MG/2 ML VIAL IV STA (15:02)
[2018-09-17] MEDS ORDERED: IPRATROPIUM/ALBUTEROL 0.5-3(2.5)MG/3ML NEB HHN ONE (15:15)
[2018-09-17] MEDS ORDERED: MAGNESIUM 2 G PREMIX 50 ML IV ONE (15:15)
[2018-09-17] MEDS ORDERED: LEVOFLOXACIN 750MG PREMIX 150 ML IV ONE (15:15)
[2018-09-17 15:30] LABS: BG BASE EXCESS 4.2 mmol/L (-2.0-2.0); BG CARBOXYHEMOGLOBIN 0.8 % (0.5-1.5); BG DEOXYHEMOGLOBIN 5.8 % (0.0-5.0); BG FRACTION INSPIRED OXYGEN 28; BG HCO3 ACT 29.2 mmol/L (22.0-26.0); BG OXYGEN SATURATION 94.2 % (92.0-98.5); BG OXYHEMOGLOBIN 93.4 % (94.0-97.0); BG PCO2 46.2 mmHg (35.0-45.0); BG PH 7.418 (7.350-7.450); BG PO2 69.8 mmHg (75.0-100.0); BG SAMPLE SITE RIGHT RADIAL; BG TOTAL HEMOGLOBIN 8.1 g/dL (12.0-18.0); BG VENT MODE NASAL CANNULA
[2018-09-17 16:29] LABS: CHLORIDE 100 mEq/L (98-107); PARTIAL THROMBOPLASTIN TIME 32.6 sec (23.4-31.0); PROTHROMBIN TIME 10.2 sec (9.1-11.1)
[2018-09-17 16:30] LABS: HEMATOCRIT. 25.5 % (36.0-48.0); HEMOGLOBIN. 7.9 g/dL (12.0-16.0); MEAN CORPUSCULAR VOLUME 80.9 fL (81.0-99.0); MEAN PLATELET VOLUME 8.8 fl (7.4-10.4); PLATELET 348 x1000/uL (130-400); RED BLOOD CELL COUNT 3.16 mill/uL (4.2-5.4); RED CELL DISTRIBUTION WIDTH 18.9 % (11.6-14.6)
[2018-09-17 16:34] LABS: ETHANOL BLOOD < 10 mg/dL
[2018-09-17 16:39] LABS: CREATINE KINASE 134 IU/L (26-192)
[2018-09-17 17:21] LABS: PLATELET ESTIMATE NORMAL
[2018-09-17] MEDS ORDERED: METHYLPREDNISOLONE SOD SUCC 125 MG/2 ML VIAL IV SCH (23:45)
[2018-09-17] MEDS ORDERED: IPRATROPIUM/ALBUTEROL 0.5-3(2.5)MG/3ML NEB INH PRN (23:45)
[2018-09-17] MEDS ORDERED: ACETAMINOPHEN 325MG TABLET PO PRN (23:45)
[2018-09-17] MEDS ORDERED: DIPHENHYDRAMINE 50MG/ML VIAL IV PRN (23:45)
[2018-09-17] MEDS ORDERED: ONDANSETRON HCL 4MG/2ML INJ IV PRN (23:45)
[2018-09-17] MEDS ORDERED: MAGNESIUM/ALUMINUM HYDROXIDE/SIMETHICONE 30ML UDC PO PRN (23:45)
[2018-09-17] MEDS ORDERED: NA PHOS,M-B/NA PHOS,DI-BA ENEMA 118ML PR PRN (23:45)
[2018-09-17] MEDS ORDERED: DOCUSATE SODIUM 100MG CAPSULE PO PRN (23:45)
[2018-09-17] MEDS ORDERED: MORPHINE SULFATE 4 MG/ML CPJ (NOT FOR IM USE) IV PRN (23:45)
[2018-09-17] MEDS ORDERED: GUAIFENESIN 200MG/10ML SUGAR FREE UDC PO PRN (23:45)
[2018-09-17] MEDS ORDERED: CLONIDINE 0.1MG TABLET PO PRN (23:45)
[2018-09-18] MEDS: HYDROCODONE/ACETAMINOPHEN 5/325MG TABLET PO PRN ×2 (00:51→22:22)
[2018-09-18] MEDS ORDERED: METHYLPREDNISOLONE SOD SUCC 125 MG/2 ML VIAL IV NR (01:15)
[2018-09-18 05:45] LABS: HEMATOCRIT. 25.9 % (36.0-48.0); MEAN CORPUSCULAR HEMOGLOBIN 24.9 pg (28.0-32.0); MEAN CORPUSCULAR VOLUME 80.7 fL (81.0-99.0); MEAN PLATELET VOLUME 7.7 fl (7.4-10.4); PLATELET 294 x1000/uL (130-400); RED BLOOD CELL COUNT 3.21 mill/uL (4.2-5.4); RED CELL DISTRIBUTION WIDTH 18.9 % (11.6-14.6)
[2018-09-18 05:52] LABS: CHLORIDE 100 mEq/L (98-107)
[2018-09-18 05:59] LABS: LDL CHOLESTEROL 73 mg/dL (5-100)
[2018-09-18 06:00] LABS: HDL CHOLESTEROL 134 mg/dL (40-59)
[2018-09-18 06:38] LABS: PLATELET ESTIMATE NORMAL
[2018-09-18] MEDS ORDERED: METHYLPREDNISOLONE SOD SUCC 125 MG/2 ML VIAL IV SCH (08:00)
[2018-09-18] MEDS ORDERED: IPRATROPIUM BROMIDE (0.02%) 0.5MG/2.5ML NEB HHN STA (08:29)
[2018-09-18] MEDS ORDERED: ALBUTEROL (0.083%) 2.5MG/3ML NEB HHN STA (08:29)
[2018-09-18] MEDS ORDERED: ENOXAPARIN 30MG/0.3ML SYR SUBCUT SCH (09:00)
[2018-09-18] MEDS ORDERED: ASPIRIN 81MG EC TABLET PO SCH ×2 (09:00→18:00)
[2018-09-18] MEDS ORDERED: ENOXAPARIN 40MG/0.4ML SYR SUBCUT SCH (09:00)
[2018-09-18 10:24] LABS: T4 FREE 1.24 ng/dL (0.76-1.46)
[2018-09-18] MEDS: BENZONATATE 100MG CAPSULE PO PRN (14:40)
[2018-09-18] MEDS ORDERED: BUDESONIDE 0.5MG/2ML NEB HHN SCH (15:30)
[2018-09-18] MEDS ORDERED: NICOTINE 14MG PATCH TD NR (15:30)
[2018-09-18 15:43] LABS: CREATINE KINASE 100 IU/L (26-192)
[2018-09-18 15:44] LABS: CREATINE KINASE MB FRACTION 1.7 ng/mL (0.5-3.6)
[2018-09-18 18:00] VITALS: BP 115/63
[2018-09-18] MEDS ORDERED: INFLUENZA VIRUS VACCINE(AFLURIA) 0.5ML SYR IM ONE (18:15)
[2018-09-18] MEDS: ENOXAPARIN 30MG/0.3ML SYR SUBCUT SCH (18:39)
[2018-09-18 20:00] VITALS: BP 120/71
[2018-09-18] MEDS: IPRATROPIUM/ALBUTEROL 0.5-3(2.5)MG/3ML NEB HHN SCH (21:04)
[2018-09-18 23:53] LABS: CREATINE KINASE MB FRACTION 1.6 ng/mL (0.5-3.6)
[2018-09-19] VITALS: BP 118/62
[2018-09-19] MEDS ORDERED: BISACODYL 5MG TABLET PO PRN (00:45)
[2018-09-19] MEDS ORDERED: ALBUTEROL 6.7GM HFA INHALER INH SCH (00:45)
[2018-09-19] MEDS: IPRATROPIUM/ALBUTEROL 0.5-3(2.5)MG/3ML NEB HHN SCH ×7 (00:56→23:46)
[2018-09-19] MEDS ORDERED: FLUT1DIS3 INH (00:57)
[2018-09-19] MEDS ORDERED: MELA5TAB19 PO (01:06)
[2018-09-19] MEDS ORDERED: AMLO10TA80 MT (01:06)
[2018-09-19] MEDS ORDERED: CLON-457 PO (01:06)
[2018-09-19] MEDS ORDERED: PRED-276 MT (01:06)
[2018-09-19] MEDS ORDERED: NORT25CA MT (01:06)
[2018-09-19] MEDS: LORAZEPAM 2MG/ML CPJ IV PRN ×2 (01:45→20:43)
[2018-09-19 04:00] VITALS: BP 105/57
[2018-09-19] MEDS ORDERED: BUDESONIDE 0.5MG/2ML NEB HHN SCH ×2 (08:00→09:00)
[2018-09-19 08:11] VITALS: BP 118/62
[2018-09-19] MEDS: ASPIRIN 81MG EC TABLET PO SCH (08:27)
[2018-09-19] MEDS: FOLIC ACID/VITAMIN B COMP W-C TABLET PO SCH (08:27)
[2018-09-19] MEDS: CHOLECALCIFEROL (D3) 1000 UNIT TABLET PO SCH (08:27)
[2018-09-19] MEDS: NICOTINE 14MG PATCH TD SCH (08:27)
[2018-09-19] MEDS: FERROUS SULFATE 325MG TABLET PO SCH ×2 (08:28→20:42)
[2018-09-19] MEDS: AMLODIPINE 10MG TABLET PO SCH (08:28)
[2018-09-19] MEDS ORDERED: AMLODIPINE 10MG TABLET PO SCH (09:00)
[2018-09-19] MEDS ORDERED: MEDICATION NOT ON FORMULARY EA (Fluticasone/Salmeterol (Advair 250-50 Diskus) 1 PUFF) INH SCH (09:00)
[2018-09-19] MEDS ORDERED: PREDNISOLONE MT SCH (09:00)
[2018-09-19 12:00] VITALS: BP 123/60
[2018-09-19 13:15] LABS: CREATINE KINASE MB FRACTION 1.5 ng/mL (0.5-3.6)
[2018-09-19] MEDS: BENZONATATE 100MG CAPSULE PO PRN (13:17)
[2018-09-19] MEDS: HYDROCODONE/ACETAMINOPHEN 5/325MG TABLET PO PRN (13:17)
[2018-09-19 15:57] LABS: CLARITY URINE CLEAR (CLEAR); COLOR URINE YELLOW (YELLOW); KETONES URINE NEGATIVE (NEGATIVE); LEUKOCYTE ESTERASE URINE NEGATIVE (NEGATIVE); NITRITE URINE NEGATIVE (NEGATIVE); OCCULT BLOOD URINE NEGATIVE (NEGATIVE); PROTEIN URINE NEGATIVE (NEGATIVE); SPECIFIC GRAVITY URINE 1.017 (1.005-1.030); UROBILINOGEN URINE 0.2 E.U./dL (0.2-1.0)
[2018-09-19 16:00] VITALS: BP 100/59
[2018-09-19] MEDS ORDERED: LEVOFLOXACIN 750MG PREMIX 150 ML IV SCH ×2 (16:00)
[2018-09-19 16:22] LABS: *AMPHETAMINES SCREEN URINE NEGATIVE (NEGATIVE); *BARBITURATES SCREEN URINE NEGATIVE (NEGATIVE); *BENZODIAZEPINES SCREEN URINE PRESUMTIVE POSITIVE (NEGATIVE)
[2018-09-19 16:23] LABS: CANNABINOID URINE SCREEN NEGATIVE (NEGATIVE); METHADONE URINE SCREEN NEGATIVE (NEGATIVE); PHENCYCLIDINE URINE SCREEN NEGATIVE (NEGATIVE)
[2018-09-19] MEDS: METHYLPREDNISOLONE SOD SUCC 40 MG/ML VIAL IV SCH (16:29)
[2018-09-19 16:30] LABS: *COCAINE SCREEN URINE PRESUMTIVE POSITIVE (NEGATIVE); OPIATES URINE SCREEN PRESUMTIVE POSITIVE (NEGATIVE)
[2018-09-19] MEDS ORDERED: MONTELUKAST SODIUM 10MG TABLET PO SCH (17:00)
[2018-09-19 20:43] VITALS: BP 134/60
[2018-09-19] MEDS: ENOXAPARIN 30MG/0.3ML SYR SUBCUT SCH (20:46)
[2018-09-19] MEDS ORDERED: MEDICATION NOT ON FORMULARY EA (Nortriptyline Hcl 1 CAP) MT SCH (21:00)
[2018-09-19] MEDS ORDERED: NORTRIPTYLINE HCL 25MG CAPSULE PO SCH (21:00)
[2018-09-19] MEDS ORDERED: MEDICATION NOT ON FORMULARY EA (Melatonin 3 MG) PO SCH (21:00)
[2018-09-20] MEDS: METHYLPREDNISOLONE SOD SUCC 40 MG/ML VIAL IV SCH ×3 (00:12→15:04)
[2018-09-20] MEDS: BENZONATATE 100MG CAPSULE PO PRN (00:12)
[2018-09-20] MEDS: HYDROCODONE/ACETAMINOPHEN 5/325MG TABLET PO PRN (00:12)
[2018-09-20 00:31] VITALS: BP 124/64
[2018-09-20] MEDS: IPRATROPIUM/ALBUTEROL 0.5-3(2.5)MG/3ML NEB HHN SCH ×4 (03:59→15:13)
[2018-09-20 04:00] VITALS: BP 128/63
[2018-09-20 08:00] VITALS: BP 114/78
[2018-09-20] MEDS: CHOLECALCIFEROL (D3) 1000 UNIT TABLET PO SCH (09:00)
[2018-09-20] MEDS: FOLIC ACID/VITAMIN B COMP W-C TABLET PO SCH (09:00)
[2018-09-20] MEDS: AMLODIPINE 10MG TABLET PO SCH (09:00)
[2018-09-20] MEDS: ASPIRIN 81MG EC TABLET PO SCH (09:00)
[2018-09-20] MEDS: NICOTINE 14MG PATCH TD SCH (09:00)
[2018-09-20] MEDS: FERROUS SULFATE 325MG TABLET PO SCH (09:00)
[2018-09-20 12:00] VITALS: BP 139/70
[2018-09-20 12:47] VITALS: BP 139/70
[2018-09-20 16:00] VITALS: BP 131/80
== END 2018-09-20 16:40 | DRG 189 ==
LOC: ER 14:16 → ENRESERV 09-18 16:17 → 7WST 09-18 16:52
PROVIDERS: ADMIT Internal Medicine; ATTEND Internal Medicine
DX: J96.00 Acute respiratory failure, unspecified whether with hypoxia or hypercapnia (principal); J69.0 Pneumonitis due to inhalation of food and vomit; I50.33 Acute on chronic diastolic (congestive) heart failure; J44.1 Chronic obstructive pulmonary disease with (acute) exacerbation; J98.11 Atelectasis; I13.0 Hypertensive heart and chronic kidney disease with heart failure and stage 1 through stage 4 chronic kidney disease, or unspecified chronic kidney disease; E78.5 Hyperlipidemia, unspecified; D64.9 Anemia, unspecified; F17.210 Nicotine dependence, cigarettes, uncomplicated; F32.9 Major depressive disorder, single episode, unspecified; F41.9 Anxiety disorder, unspecified; I25.10 Atherosclerotic heart disease of native coronary artery without angina pectoris; M19.90 Unspecified osteoarthritis, unspecified site; N18.9 Chronic kidney disease, unspecified; Z99.81 Dependence on supplemental oxygen; Z79.51 Long term (current) use of inhaled steroids; Z79.899 Other long term (current) drug therapy; Z79.82 Long term (current) use of aspirin
CPT/HCPCS: 36415; 36600; 71045; 80048; 80061; 80305; 82375; 82550; 82553; 82805; 83036; 83605; 83735; 83880; 84439; 84443; 84484; 85379; 87804; 93005; 93306; 93970; 94640; 94644; 96365; 96367; 96375; 99291; C1893; G0482; J1650; J1956; J2060; J2920; J2930; J3475; J7050; J7611; J7620; J7626

== ENCOUNTER → 2019-02-16 | Outpatient (CLI) | payer MEDICARE, MEDICAID ==
[~2019-02-16] MED LIST changes: +AMLO10TA80 MT; +CLON-457 PO; +FLUT1DIS3 INH; +MELA5TAB19 PO; +NORT25CA MT
== END | disposition home or self-care (01) ==
LOC: MRI 10:52
PROVIDERS: ATTEND Orthopaedic Surgery
DX: M75.101 Unspecified rotator cuff tear or rupture of right shoulder, not specified as traumatic (principal); M62.89 Other specified disorders of muscle
CPT/HCPCS: 73221

== ENCOUNTER 2019-09-24 21:38 | Inpatient (IN) | payer MEDICARE, MEDICAID ==
[~2019-09-24] VITALS: Ht 152.4 cm; Wt 82.6 kg
[~2019-09-24 21:38] MED LIST changes: +FLUT1BLS IH; -FLUT1DIS3 INH; +HYDR-4001 MT; +IPRA3AMP9 NEB; +L25 MT
[2019-09-24] MEDS ORDERED: VECURONIUM BROMIDE 10 MG/VIAL IV ONE ×2 (21:39→22:15)
[2019-09-24] MEDS ORDERED: SODIUM CHLORIDE 0.9% 10ML VIAL ONE (21:39)
[2019-09-24] MEDS ORDERED: ETOMIDATE 2MG/ML 10ML VIAL IV ONE ×2 (21:39→22:15)
[2019-09-24] MEDS ORDERED: PROPOFOL 10MG/ML 100ML 100 ML IV ONE ×2 (21:48→22:15)
[2019-09-24] MEDS ORDERED: METHYLPREDNISOLONE SOD SUCC 125 MG/2 ML VIAL IV STA (22:10)
[2019-09-24] MEDS ORDERED: ACETAMINOPHEN 650MG SUPP PR STA (22:10)
[2019-09-24] MEDS ORDERED: MAGNESIUM 2 G PREMIX 50 ML IV ONE (22:15)
[2019-09-24] MEDS ORDERED: IPRATROPIUM/ALBUTEROL 0.5-3(2.5)MG/3ML NEB HHN ONE ×2 (22:15)
[2019-09-24] MEDS ORDERED: SODIUM CHLORIDE 0.9% 1000ML BAG (SEPSIS BOLUS) IV ONE (22:15)
[2019-09-24] MEDS ORDERED: VANCOMYCIN 1 G PREMIX 200 ML IV ONE (22:15)
[2019-09-24] MEDS ORDERED: PIPERACILLIN/TAZ 3.375G PREMIX 50 ML IV ONE (22:15)
[2019-09-24 22:44] LABS: BG BASE EXCESS 2.2 mmol/L (-2.0-2.0); BG CARBOXYHEMOGLOBIN 0.3 % (0.5-1.5); BG DEOXYHEMOGLOBIN 0.7 % (0.0-5.0); BG FRACTION INSPIRED OXYGEN 45; BG HCO3 ACT 29.3 mmol/L (22.0-26.0); BG METHEMOGLOBIN 0.3 % (0.0-1.5); BG OXYGEN SATURATION 99.3 % (92.0-98.5); BG OXYHEMOGLOBIN 98.7 % (94.0-97.0); BG PCO2 59.4 mmHg (35.0-45.0); BG PH 7.311 (7.350-7.450); BG PO2 193.4 mmHg (75.0-100.0); BG SAMPLE SITE RIGHT RADIAL; BG TIDAL VOLUME(mL) 550 mL; BG TOTAL HEMOGLOBIN 9.6 g/dL (12.0-18.0); BG VENT MODE VENT - A/C; BG VENT RATE 16 set
[2019-09-24 22:51] LABS: CHLORIDE 100 mEq/L (98-107)
[2019-09-24 22:55] LABS: ETHANOL BLOOD < 10 mg/dL; HEMOGLOBIN. 8.5 g/dL (12.0-16.0); MEAN CORPUSCULAR HEMOGLOBIN 27.4 pg (28.0-32.0); MEAN CORPUSCULAR VOLUME 87.4 fL (81.0-99.0); MEAN PLATELET VOLUME 9.6 fl (7.4-10.4); PLATELET 335 x1000/uL (130-400); RED BLOOD CELL COUNT 3.09 mill/uL (4.2-5.4); RED CELL DISTRIBUTION WIDTH 16.7 % (11.6-14.6)
[2019-09-24 23:02] LABS: PROTHROMBIN TIME 10.4 sec (9.6-11.0)
[2019-09-24 23:22] LABS: PLATELET ESTIMATE NORMAL
[2019-09-25] VITALS (70 sets, daily range): BP systolic 81–205; BP diastolic 30–98
[2019-09-25] MEDS ORDERED: CALCIUM CHLORIDE 1GM/10ML SYR IV ONE (01:00)
[2019-09-25] MEDS ORDERED: SODIUM BICARBONATE 8.4% 1 MEQ/ML 50ML SYR IV ONE (01:00)
[2019-09-25] MEDS ORDERED: SODIUM POLYSTYRENE SULFONATE 15 G/60 ML BOT NG ONE (01:00)
[2019-09-25 01:38] LABS: CLARITY URINE CLEAR (CLEAR); COLOR URINE YELLOW (YELLOW); KETONES URINE NEGATIVE (NEGATIVE); LEUKOCYTE ESTERASE URINE NEGATIVE (NEGATIVE); NITRITE URINE NEGATIVE (NEGATIVE); OCCULT BLOOD URINE TRACE (NEGATIVE); PROTEIN URINE NEGATIVE (NEGATIVE); SPECIFIC GRAVITY URINE 1.013 (1.005-1.030); UROBILINOGEN URINE 0.2 E.U./dL (0.2-1.0)
[2019-09-25 01:40] LABS: *BARBITURATES SCREEN URINE NEGATIVE (NEGATIVE)
[2019-09-25 01:41] LABS: *AMPHETAMINES SCREEN URINE NEGATIVE (NEGATIVE); *BENZODIAZEPINES SCREEN URINE PRESUMTIVE POSITIVE (NEGATIVE); *COCAINE SCREEN URINE PRESUMTIVE POSITIVE (NEGATIVE); METHADONE URINE SCREEN NEGATIVE (NEGATIVE); OPIATES URINE SCREEN PRESUMTIVE POSITIVE (NEGATIVE); PHENCYCLIDINE URINE SCREEN NEGATIVE (NEGATIVE)
[2019-09-25 01:42] LABS: CANNABINOID URINE SCREEN NEGATIVE (NEGATIVE)
[2019-09-25] MEDS ORDERED: PROPOFOL 10MG/ML 100ML 100 ML IV ONE (03:15)
[2019-09-25 06:29] LABS: BG BASE EXCESS 1.5 mmol/L (-2.0-2.0); BG CARBOXYHEMOGLOBIN 0.3 % (0.5-1.5); BG DEOXYHEMOGLOBIN 0.8 % (0.0-5.0); BG FRACTION INSPIRED OXYGEN 45; BG HCO3 ACT 25.5 mmol/L (22.0-26.0); BG METHEMOGLOBIN 0.2 % (0.0-1.5); BG OXYGEN SATURATION 99.2 % (92.0-98.5); BG OXYHEMOGLOBIN 98.7 % (94.0-97.0); BG PCO2 37.4 mmHg (35.0-45.0); BG PH 7.451 (7.350-7.450); BG PO2 156.6 mmHg (75.0-100.0); BG SAMPLE SITE RIGHT RADIAL; BG TIDAL VOLUME(mL) 550 mL; BG TOTAL HEMOGLOBIN 8.3 g/dL (12.0-18.0); BG VENT MODE VENT - A/C; BG VENT RATE 16 set
[2019-09-25] MEDS ORDERED: LEVOFLOXACIN 500MG PREMIX 100 ML IV SCH ×2 (07:00→09:00)
[2019-09-25] MEDS ORDERED: GUAIFENESIN 200MG/10ML SUGAR FREE UDC PO PRN (07:00)
[2019-09-25] MEDS ORDERED: CLONIDINE 0.1MG TABLET PO PRN (07:00)
[2019-09-25] MEDS ORDERED: NA PHOS,M-B/NA PHOS,DI-BA ENEMA 118ML PR PRN (07:00)
[2019-09-25] MEDS ORDERED: IPRATROPIUM/ALBUTEROL 0.5-3(2.5)MG/3ML NEB NEB PRN (07:00)
[2019-09-25] MEDS ORDERED: MAGNESIUM/ALUMINUM HYDROXIDE/SIMETHICONE 30ML UDC PO PRN (07:00)
[2019-09-25] MEDS ORDERED: DOCUSATE SODIUM 100MG CAPSULE PO PRN (07:00)
[2019-09-25] MEDS ORDERED: HYDROCODONE/ACETAMINOPHEN 5/325MG TABLET PO PRN (07:00)
[2019-09-25] MEDS ORDERED: ONDANSETRON HCL 4MG/2ML INJ IV PRN (07:00)
[2019-09-25] MEDS ORDERED: DIPHENHYDRAMINE 50MG/ML VIAL IV PRN (07:00)
[2019-09-25] MEDS: PROPOFOL 10MG/ML 100ML 100 ML IV PRN ×3 (09:04→23:04)
[2019-09-25] MEDS: DEXT 5%/0.45% NACL 1000ML 1,000 ML IV SCH (09:05)
[2019-09-25] MEDS: METHYLPREDNISOLONE SOD SUCC 125 MG/2 ML VIAL IV SCH ×3 (09:05→18:39)
[2019-09-25] MEDS: ASPIRIN 81MG EC TABLET PO SCH (09:10)
[2019-09-25] MEDS: ENOXAPARIN 40MG/0.4ML SYR SUBCUT SCH (09:11)
[2019-09-25] MEDS: MULTIVITAMINS,THER W-MINERALS TABLET NG SCH (10:21)
[2019-09-25] MEDS: FOLIC ACID 1MG TABLET NG SCH (10:21)
[2019-09-25] MEDS: THIAMINE HCL 100MG TABLET NG SCH (10:21)
[2019-09-25] MEDS ORDERED: SODIUM POLYSTYRENE SULFONATE 15 G/60 ML BOT PO SCH (11:00)
[2019-09-25] MEDS: IPRATROPIUM/ALBUTEROL 0.5-3(2.5)MG/3ML NEB HHN SCH ×3 (12:10→20:37)
[2019-09-25] MEDS ORDERED: DEXTROSE 50% WATER 50ML SYRINGE IV ONE (18:01)
[2019-09-26] VITALS (98 sets, daily range): BP systolic 65–165; BP diastolic 31–107
[2019-09-26] MEDS: METHYLPREDNISOLONE SOD SUCC 125 MG/2 ML VIAL IV SCH ×5 (00:04→23:37)
[2019-09-26] MEDS: IPRATROPIUM/ALBUTEROL 0.5-3(2.5)MG/3ML NEB HHN SCH ×6 (00:53→20:25)
[2019-09-26] MEDS: LORAZEPAM 2MG/ML CPJ IV PRN ×2 (02:31→14:02)
[2019-09-26] MEDS: PROPOFOL 10MG/ML 100ML 100 ML IV PRN ×4 (03:49→20:41)
[2019-09-26 05:32] LABS: CHLORIDE 105 mEq/L (98-107)
[2019-09-26 05:57] LABS: LDL CHOLESTEROL 114 mg/dL (5-100)
[2019-09-26 05:59] LABS: HDL CHOLESTEROL 81 mg/dL (40-59)
[2019-09-26 06:00] LABS: T4 FREE 1.65 ng/dL (0.76-1.46)
[2019-09-26] MEDS: ENOXAPARIN 40MG/0.4ML SYR SUBCUT SCH (08:00)
[2019-09-26] MEDS: MULTIVITAMINS,THER W-MINERALS TABLET NG SCH (08:00)
[2019-09-26] MEDS: FOLIC ACID 1MG TABLET NG SCH (08:00)
[2019-09-26] MEDS: THIAMINE HCL 100MG TABLET NG SCH (08:00)
[2019-09-26] MEDS: ASPIRIN 81MG EC TABLET PO SCH (08:00)
[2019-09-26] MEDS: DEXT 5%/0.45% NACL 1000ML 1,000 ML IV SCH (08:00)
[2019-09-26 08:14] LABS: BG CARBOXYHEMOGLOBIN 0.3 % (0.5-1.5); BG DEOXYHEMOGLOBIN 5.1 % (0.0-5.0); BG FRACTION INSPIRED OXYGEN 35; BG HCO3 ACT 32.3 mmol/L (22.0-26.0); BG METHEMOGLOBIN 0.3 % (0.0-1.5); BG OXYGEN SATURATION 94.9 % (92.0-98.5); BG OXYHEMOGLOBIN 94.3 % (94.0-97.0); BG PCO2 39.6 mmHg (35.0-45.0); BG SAMPLE SITE RIGHT RADIAL; BG TIDAL VOLUME(mL) 550 mL; BG TOTAL HEMOGLOBIN 10.1 g/dL (12.0-18.0); BG VENT MODE VENT - A/C; BG VENT RATE 14 set
[2019-09-26 09:04] LABS: HEMATOCRIT. 28.6 % (36.0-48.0); HEMOGLOBIN. 8.9 g/dL (12.0-16.0); MEAN CORPUSCULAR HEMOGLOBIN 26.2 pg (28.0-32.0); MEAN CORPUSCULAR VOLUME 83.7 fL (81.0-99.0); MEAN PLATELET VOLUME 8.6 fl (7.4-10.4); PLATELET 329 x1000/uL (130-400); RED BLOOD CELL COUNT 3.41 mill/uL (4.2-5.4); RED CELL DISTRIBUTION WIDTH 17.3 % (11.6-14.6)
[2019-09-26] MEDS: LEVOFLOXACIN 250MG PREMIX 50 ML IV SCH (10:12)
[2019-09-26 10:38] LABS: PLATELET ESTIMATE NORMAL
[2019-09-26] MEDS: QUETIAPINE FUMARATE 25MG TABLET PO SCH ×2 (11:45→20:16)
[2019-09-26] MEDS: METHIMAZOLE 5MG TABLET NG SCH (12:24)
[2019-09-26] MEDS ORDERED: LIDOCAINE HCL 1% 20ML VIAL (Pyxis) INJ ONE (14:40)
[2019-09-26] MEDS ORDERED: SODIUM BICARBONATE 4% (2.4MEQ) 5ML VIAL IV ONE (14:40)
[2019-09-26] MEDS: VANCOMYCIN 750 MG PREMIX 150 ML IV SCH (16:17)
[2019-09-26 19:10] LABS: ANTI-NUCLEAR ANTIBODIES DIRECT Negative (Negative)
[2019-09-27] VITALS (87 sets, daily range): BP systolic 64–163; BP diastolic 26–92
[2019-09-27] MEDS: IPRATROPIUM/ALBUTEROL 0.5-3(2.5)MG/3ML NEB HHN SCH ×6 (00:22→20:31)
[2019-09-27] MEDS: PROPOFOL 10MG/ML 100ML 100 ML IV PRN ×6 (00:52→23:08)
[2019-09-27] MEDS: METHYLPREDNISOLONE SOD SUCC 125 MG/2 ML VIAL IV SCH (05:03)
[2019-09-27 05:34] LABS: HEMATOCRIT. 27.9 % (36.0-48.0); HEMOGLOBIN. 8.7 g/dL (12.0-16.0); MEAN CORPUSCULAR HEMOGLOBIN 26.4 pg (28.0-32.0); MEAN CORPUSCULAR VOLUME 84.5 fL (81.0-99.0); MEAN PLATELET VOLUME 8.4 fl (7.4-10.4); PLATELET 291 x1000/uL (130-400); RED CELL DISTRIBUTION WIDTH 17.2 % (11.6-14.6)
[2019-09-27] MEDS: FOLIC ACID 1MG TABLET NG SCH (08:01)
[2019-09-27] MEDS: METHIMAZOLE 5MG TABLET NG SCH (08:01)
[2019-09-27] MEDS: THIAMINE HCL 100MG TABLET NG SCH (08:01)
[2019-09-27] MEDS: ENOXAPARIN 40MG/0.4ML SYR SUBCUT SCH (08:01)
[2019-09-27] MEDS: MULTIVITAMINS,THER W-MINERALS TABLET NG SCH (08:01)
[2019-09-27] MEDS: ASPIRIN 81MG EC TABLET PO SCH (08:01)
[2019-09-27] MEDS: QUETIAPINE FUMARATE 25MG TABLET PO SCH ×2 (08:05→20:47)
[2019-09-27 08:07] LABS: BG BASE EXCESS 6.2 mmol/L (-2.0-2.0); BG CARBOXYHEMOGLOBIN 0.4 % (0.5-1.5); BG DEOXYHEMOGLOBIN 1.6 % (0.0-5.0); BG FRACTION INSPIRED OXYGEN 35; BG HCO3 ACT 30.4 mmol/L (22.0-26.0); BG OXYGEN SATURATION 98.4 % (92.0-98.5); BG PCO2 42.2 mmHg (35.0-45.0); BG PH 7.475 (7.350-7.450); BG PO2 118.6 mmHg (75.0-100.0); BG PRESSURE SUPPORT 14; BG SAMPLE SITE RIGHT RADIAL; BG TIDAL VOLUME(mL) 550 mL; BG VENT MODE VENT - SIMV; BG VENT RATE 10 set
[2019-09-27 08:29] LABS: NUCLEATED RED BLOOD CELLS 2 /100 WBC
[2019-09-27 08:30] LABS: PLATELET ESTIMATE NORMAL
[2019-09-27] MEDS: DEXT 5%/0.45% NACL 1000ML 1,000 ML IV SCH (09:19)
[2019-09-27] MEDS: LEVOFLOXACIN 250MG PREMIX 50 ML IV SCH (10:04)
[2019-09-27] MEDS: PANTOPRAZOLE SODIUM 40 MG/VIAL IV SCH (10:04)
[2019-09-27] MEDS: BUDESONIDE 0.5MG/2ML NEB HHN SCH ×2 (11:28→20:31)
[2019-09-27] MEDS: METHYLPREDNISOLONE SOD SUCC 40 MG/ML VIAL IV SCH (16:49)
[2019-09-27] MEDS: VANCOMYCIN 750 MG PREMIX 150 ML IV SCH (16:49)
[2019-09-27] MEDS: MORPHINE SULFATE 2 MG/ML CPJ (NOT FOR IM USE) IV PRN (17:49)
[2019-09-28] VITALS (87 sets, daily range): BP systolic 87–135; BP diastolic 31–84
[2019-09-28] MEDS: METHYLPREDNISOLONE SOD SUCC 40 MG/ML VIAL IV SCH ×4 (00:04→23:56)
[2019-09-28] MEDS: IPRATROPIUM/ALBUTEROL 0.5-3(2.5)MG/3ML NEB HHN SCH ×6 (00:16→20:44)
[2019-09-28] MEDS: PROPOFOL 10MG/ML 100ML 100 ML IV PRN ×5 (03:01→21:16)
[2019-09-28 06:07] LABS: HEMATOCRIT. 27.7 % (36.0-48.0); HEMOGLOBIN. 8.7 g/dL (12.0-16.0); MEAN CORPUSCULAR HEMOGLOBIN 26.5 pg (28.0-32.0); MEAN CORPUSCULAR VOLUME 84.6 fL (81.0-99.0); MEAN PLATELET VOLUME 9.1 fl (7.4-10.4); PLATELET 380 x1000/uL (130-400); RED BLOOD CELL COUNT 3.28 mill/uL (4.2-5.4); RED CELL DISTRIBUTION WIDTH 17.9 % (11.6-14.6)
[2019-09-28] MEDS: BUDESONIDE 0.5MG/2ML NEB HHN SCH ×2 (08:31→20:44)
[2019-09-28 08:37] LABS: BG BASE EXCESS 4.9 mmol/L (-2.0-2.0); BG CARBOXYHEMOGLOBIN 0.3 % (0.5-1.5); BG DEOXYHEMOGLOBIN 8.4 % (0.0-5.0); BG FRACTION INSPIRED OXYGEN 30; BG HCO3 ACT 29.7 mmol/L (22.0-26.0); BG METHEMOGLOBIN 0.3 % (0.0-1.5); BG OXYGEN SATURATION 91.5 % (92.0-98.5); BG PCO2 45.2 mmHg (35.0-45.0); BG PH 7.435 (7.350-7.450); BG PO2 64.5 mmHg (75.0-100.0); BG PRESSURE SUPPORT 12; BG SAMPLE SITE RIGHT RADIAL; BG TIDAL VOLUME(mL) 500 mL; BG TOTAL HEMOGLOBIN 9.4 g/dL (12.0-18.0); BG VENT MODE VENT - SIMV; BG VENT RATE 12 set
[2019-09-28] MEDS: PANTOPRAZOLE SODIUM 40 MG/VIAL IV SCH (08:40)
[2019-09-28] MEDS: ENOXAPARIN 40MG/0.4ML SYR SUBCUT SCH (08:41)
[2019-09-28] MEDS: MULTIVITAMINS,THER W-MINERALS TABLET NG SCH (08:41)
[2019-09-28] MEDS: QUETIAPINE FUMARATE 25MG TABLET PO SCH ×2 (08:41→20:28)
[2019-09-28] MEDS: ASPIRIN 81MG EC TABLET PO SCH (08:41)
[2019-09-28] MEDS: METHIMAZOLE 5MG TABLET NG SCH (08:41)
[2019-09-28] MEDS: THIAMINE HCL 100MG TABLET NG SCH (08:41)
[2019-09-28] MEDS: FOLIC ACID 1MG TABLET NG SCH (08:41)
[2019-09-28 10:12] LABS: PLATELET ESTIMATE NORMAL
[2019-09-28] MEDS: LEVOFLOXACIN 250MG PREMIX 50 ML IV SCH (11:04)
[2019-09-28] MEDS: VANCOMYCIN 750 MG PREMIX 150 ML IV SCH (16:10)
[2019-09-28] MEDS: LORAZEPAM 2MG/ML CPJ IV PRN (21:52)
[2019-09-29] VITALS (84 sets, daily range): BP systolic 86–143; BP diastolic 41–82
[2019-09-29] MEDS: PROPOFOL 10MG/ML 100ML 100 ML IV PRN ×2 (01:12→05:42)
[2019-09-29] MEDS: IPRATROPIUM/ALBUTEROL 0.5-3(2.5)MG/3ML NEB HHN SCH ×7 (04:10→23:36)
[2019-09-29 05:54] LABS: HEMATOCRIT. 26.2 % (36.0-48.0); HEMOGLOBIN. 8.1 g/dL (12.0-16.0); MEAN CORPUSCULAR HEMOGLOBIN 26.5 pg (28.0-32.0); MEAN CORPUSCULAR VOLUME 85.7 fL (81.0-99.0); MEAN PLATELET VOLUME 9.4 fl (7.4-10.4); PLATELET 358 x1000/uL (130-400); RED BLOOD CELL COUNT 3.05 mill/uL (4.2-5.4); RED CELL DISTRIBUTION WIDTH 18.5 % (11.6-14.6)
[2019-09-29 07:37] LABS: BG CARBOXYHEMOGLOBIN 0.3 % (0.5-1.5); BG DEOXYHEMOGLOBIN 2.8 % (0.0-5.0); BG HCO3 ACT 26.8 mmol/L (22.0-26.0); BG METHEMOGLOBIN 0.3 % (0.0-1.5); BG OXYGEN SATURATION 97.2 % (92.0-98.5); BG OXYHEMOGLOBIN 96.6 % (94.0-97.0); BG PCO2 43.1 mmHg (35.0-45.0); BG PH 7.412 (7.350-7.450); BG PO2 101.7 mmHg (75.0-100.0); BG SAMPLE SITE RIGHT RADIAL; BG TIDAL VOLUME(mL) 500 mL; BG TOTAL HEMOGLOBIN 8.1 g/dL (12.0-18.0); BG VENT MODE VENT - SIMV; BG VENT RATE 12 set
[2019-09-29] MEDS: BUDESONIDE 0.5MG/2ML NEB HHN SCH ×2 (08:05→19:47)
[2019-09-29] MEDS ORDERED: PROPOFOL 10MG/ML 100ML 100 ML IV PRN (08:15)
[2019-09-29] MEDS: ASPIRIN 81MG EC TABLET PO SCH (09:14)
[2019-09-29] MEDS: FOLIC ACID 1MG TABLET NG SCH (09:14)
[2019-09-29] MEDS: QUETIAPINE FUMARATE 25MG TABLET PO SCH ×2 (09:15→20:47)
[2019-09-29] MEDS: METHIMAZOLE 5MG TABLET NG SCH (09:15)
[2019-09-29] MEDS: MULTIVITAMINS,THER W-MINERALS TABLET NG SCH (09:15)
[2019-09-29] MEDS: THIAMINE HCL 100MG TABLET NG SCH (09:15)
[2019-09-29] MEDS: ENOXAPARIN 40MG/0.4ML SYR SUBCUT SCH (09:16)
[2019-09-29] MEDS: METHYLPREDNISOLONE SOD SUCC 40 MG/ML VIAL IV SCH ×3 (09:19→23:26)
[2019-09-29] MEDS: PANTOPRAZOLE SODIUM 40 MG/VIAL IV SCH (09:20)
[2019-09-29] MEDS: MORPHINE SULFATE 2 MG/ML CPJ (NOT FOR IM USE) IV PRN (09:27)
[2019-09-29 10:00] LABS: PLATELET ESTIMATE NORMAL
[2019-09-29] MEDS: LEVOFLOXACIN 250MG PREMIX 50 ML IV SCH (11:06)
[2019-09-29] MEDS: LORAZEPAM 2MG/ML CPJ IV PRN (11:07)
[2019-09-29 11:34] LABS: BG BASE EXCESS 4.9 mmol/L (-2.0-2.0); BG CARBOXYHEMOGLOBIN 0.3 % (0.5-1.5); BG DEOXYHEMOGLOBIN 6.6 % (0.0-5.0); BG FRACTION INSPIRED OXYGEN 30; BG HCO3 ACT 30.2 mmol/L (22.0-26.0); BG METHEMOGLOBIN 0.2 % (0.0-1.5); BG OXYGEN SATURATION 93.4 % (92.0-98.5); BG OXYHEMOGLOBIN 92.9 % (94.0-97.0); BG PCO2 48.8 mmHg (35.0-45.0); BG PH 7.409 (7.350-7.450); BG PO2 73.1 mmHg (75.0-100.0); BG PRESSURE SUPPORT 12; BG SAMPLE SITE RIGHT RADIAL; BG TIDAL VOLUME(mL) 500 mL; BG TOTAL HEMOGLOBIN 8.7 g/dL (12.0-18.0); BG VENT MODE VENT - SIMV; BG VENT RATE 8 set
[2019-09-29 13:46] LABS: BG BASE EXCESS 1.9 mmol/L (-2.0-2.0); BG CARBOXYHEMOGLOBIN 0.3 % (0.5-1.5); BG CPAP (cmH2O) 0 cm(H2O); BG DEOXYHEMOGLOBIN 9.6 % (0.0-5.0); BG HCO3 ACT 27.3 mmol/L (22.0-26.0); BG METHEMOGLOBIN 0.3 % (0.0-1.5); BG OXYGEN SATURATION 90.3 % (92.0-98.5); BG OXYHEMOGLOBIN 89.8 % (94.0-97.0); BG PCO2 46.5 mmHg (35.0-45.0); BG PH 7.386 (7.350-7.450); BG PO2 64.5 mmHg (75.0-100.0); BG SAMPLE SITE RIGHT RADIAL; BG VENT MODE VENT - CPAP
[2019-09-29] MEDS: ACETAMINOPHEN 325MG TABLET PO PRN (14:35)
[2019-09-29 15:21] LABS: BG BASE EXCESS 6.1 mmol/L (-2.0-2.0); BG CARBOXYHEMOGLOBIN 0.3 % (0.5-1.5); BG CPAP (cmH2O) 0 cm(H2O); BG DEOXYHEMOGLOBIN 6.2 % (0.0-5.0); BG HCO3 ACT 31.6 mmol/L (22.0-26.0); BG METHEMOGLOBIN 0.4 % (0.0-1.5); BG OXYGEN SATURATION 93.8 % (92.0-98.5); BG OXYHEMOGLOBIN 93.1 % (94.0-97.0); BG PCO2 51.1 mmHg (35.0-45.0); BG PH 7.409 (7.350-7.450); BG PO2 73.4 mmHg (75.0-100.0); BG SAMPLE SITE RIGHT RADIAL; BG TOTAL HEMOGLOBIN 9.1 g/dL (12.0-18.0); BG VENT MODE VENT - CPAP
[2019-09-29 17:09] LABS: BG BASE EXCESS 4.3 mmol/L (-2.0-2.0); BG CARBOXYHEMOGLOBIN 0.3 % (0.5-1.5); BG DEOXYHEMOGLOBIN 3.7 % (0.0-5.0); BG HCO3 ACT 29.6 mmol/L (22.0-26.0); BG METHEMOGLOBIN 0.3 % (0.0-1.5); BG OXYGEN SATURATION 96.3 % (92.0-98.5); BG OXYHEMOGLOBIN 95.7 % (94.0-97.0); BG PCO2 48.5 mmHg (35.0-45.0); BG PH 7.404 (7.350-7.450); BG PO2 92.6 mmHg (75.0-100.0); BG SAMPLE SITE RIGHT RADIAL; BG VENT MODE MASK - AEROSOL
[2019-09-29] MEDS: VANCOMYCIN 750 MG PREMIX 150 ML IV SCH (17:32)
[2019-09-30] VITALS (36 sets, daily range): BP systolic 98–148; BP diastolic 46–104
[2019-09-30] MEDS: IPRATROPIUM/ALBUTEROL 0.5-3(2.5)MG/3ML NEB HHN SCH ×5 (04:08→21:15)
[2019-09-30 05:46] LABS: HEMATOCRIT. 25.3 % (36.0-48.0); HEMOGLOBIN. 7.7 g/dL (12.0-16.0); MEAN CORPUSCULAR HEMOGLOBIN 26.1 pg (28.0-32.0); MEAN PLATELET VOLUME 9.1 fl (7.4-10.4); PLATELET 401 x1000/uL (130-400); RED BLOOD CELL COUNT 2.95 mill/uL (4.2-5.4); RED CELL DISTRIBUTION WIDTH 18.5 % (11.6-14.6)
[2019-09-30 07:17] LABS: BG BASE EXCESS 4.6 mmol/L (-2.0-2.0); BG CARBOXYHEMOGLOBIN 0.3 % (0.5-1.5); BG DEOXYHEMOGLOBIN 4.8 % (0.0-5.0); BG HCO3 ACT 30.6 mmol/L (22.0-26.0); BG METHEMOGLOBIN 0.1 % (0.0-1.5); BG OXYGEN SATURATION 95.2 % (92.0-98.5); BG OXYHEMOGLOBIN 94.8 % (94.0-97.0); BG PCO2 53.2 mmHg (35.0-45.0); BG PH 7.378 (7.350-7.450); BG PO2 82.8 mmHg (75.0-100.0); BG SAMPLE SITE RIGHT RADIAL; BG TOTAL HEMOGLOBIN 9.5 g/dL (12.0-18.0); BG VENT MODE MASK - AEROSOL
[2019-09-30] MEDS: BUDESONIDE 0.5MG/2ML NEB HHN SCH (07:35)
[2019-09-30] MEDS: METHYLPREDNISOLONE SOD SUCC 40 MG/ML VIAL IV SCH ×3 (08:20→23:04)
[2019-09-30] MEDS: PANTOPRAZOLE SODIUM 40 MG/VIAL IV SCH (08:20)
[2019-09-30 11:14] LABS: PLATELET ESTIMATE NORMAL
[2019-09-30] MEDS: LEVOFLOXACIN 250MG PREMIX 50 ML IV SCH ×2 (12:00→16:58)
[2019-09-30] MEDS: ASPIRIN 81MG EC TABLET PO SCH (12:30)
[2019-09-30] MEDS: FOLIC ACID 1MG TABLET NG SCH (12:30)
[2019-09-30] MEDS: THIAMINE HCL 100MG TABLET NG SCH (12:30)
[2019-09-30] MEDS: QUETIAPINE FUMARATE 25MG TABLET PO SCH ×2 (12:30→20:39)
[2019-09-30] MEDS: METHIMAZOLE 5MG TABLET NG SCH (12:30)
[2019-09-30] MEDS: VANCOMYCIN 750 MG PREMIX 150 ML IV SCH (23:01)
[2019-10-01] VITALS (10 sets, daily range): BP systolic 129–151; BP diastolic 64–92
[2019-10-01] MEDS: IPRATROPIUM/ALBUTEROL 0.5-3(2.5)MG/3ML NEB HHN SCH ×6 (00:17→19:49)
[2019-10-01 06:15] LABS: HEMATOCRIT. 25.8 % (36.0-48.0); HEMOGLOBIN. 7.9 g/dL (12.0-16.0); MEAN CORPUSCULAR HEMOGLOBIN 26.2 pg (28.0-32.0); MEAN CORPUSCULAR VOLUME 85.5 fL (81.0-99.0); PLATELET 444 x1000/uL (130-400); RED BLOOD CELL COUNT 3.02 mill/uL (4.2-5.4); RED CELL DISTRIBUTION WIDTH 18.7 % (11.6-14.6)
[2019-10-01] MEDS: MULTIVITAMINS,THER W-MINERALS TABLET NG SCH (09:00)
[2019-10-01] MEDS: METHIMAZOLE 5MG TABLET NG SCH (09:00)
[2019-10-01] MEDS: FOLIC ACID 1MG TABLET NG SCH (09:03)
[2019-10-01] MEDS: THIAMINE HCL 100MG TABLET NG SCH (09:03)
[2019-10-01] MEDS: ASPIRIN 81MG EC TABLET PO SCH (09:03)
[2019-10-01] MEDS: METHYLPREDNISOLONE SOD SUCC 40 MG/ML VIAL IV SCH (09:05)
[2019-10-01] MEDS: QUETIAPINE FUMARATE 25MG TABLET PO SCH ×2 (09:05→21:00)
[2019-10-01] MEDS: PANTOPRAZOLE SODIUM 40 MG/VIAL IV SCH (09:05)
[2019-10-01 12:34] LABS: PLATELET ESTIMATE INCREASED
[2019-10-01] MEDS: LEVOFLOXACIN 250MG PREMIX 50 ML IV SCH (14:06)
[2019-10-01] MEDS: ACETAMINOPHEN 325MG TABLET PO PRN (21:21)
[2019-10-02] VITALS (9 sets, daily range): BP systolic 113–144; BP diastolic 63–88
[2019-10-02] MEDS: IPRATROPIUM/ALBUTEROL 0.5-3(2.5)MG/3ML NEB HHN SCH ×5 (00:14→15:30)
[2019-10-02] MEDS: ACETAMINOPHEN 325MG TABLET PO PRN (03:28)
[2019-10-02 07:40] LABS: HEMATOCRIT. 26.6 % (36.0-48.0); HEMOGLOBIN. 8.2 g/dL (12.0-16.0); MEAN CORPUSCULAR HEMOGLOBIN 26.2 pg (28.0-32.0); MEAN CORPUSCULAR VOLUME 85.6 fL (81.0-99.0); MEAN PLATELET VOLUME 8.7 fl (7.4-10.4); PLATELET 465 x1000/uL (130-400); RED BLOOD CELL COUNT 3.11 mill/uL (4.2-5.4); RED CELL DISTRIBUTION WIDTH 18.4 % (11.6-14.6)
[2019-10-02] MEDS: ASPIRIN 81MG EC TABLET PO SCH (08:21)
[2019-10-02] MEDS: FOLIC ACID 1MG TABLET NG SCH (08:21)
[2019-10-02] MEDS: THIAMINE HCL 100MG TABLET NG SCH (08:21)
[2019-10-02] MEDS: MULTIVITAMINS,THER W-MINERALS TABLET NG SCH (08:22)
[2019-10-02] MEDS: METHIMAZOLE 5MG TABLET NG SCH (08:31)
[2019-10-02] MEDS: QUETIAPINE FUMARATE 25MG TABLET PO SCH ×2 (08:32→08:37)
[2019-10-02] MEDS ORDERED: PREDNISONE 20MG TABLET PO SCH (09:00)
[2019-10-02] MEDS ORDERED: FAMOTIDINE 20MG TABLET PO SCH (09:00)
[2019-10-02 12:29] LABS: PLATELET ESTIMATE INCREASED
== END 2019-10-02 17:58 | DRG 207 ==
LOC: ER 21:38 → MICUSO 09-25 01:36 → EDBEDREQTM 09-25 01:46 → EDBEDREQ 09-25 01:46 → EDBEDREQDT 09-25 01:46 → ENRESERV 09-25 02:43 → 5EST 09-30 16:16
PROVIDERS: ADMIT Internal Medicine; ATTEND Internal Medicine
PROC: 5A1955Z Respiratory Ventilation, Greater than 96 Consecutive Hours (ICD-10-PCS; principal; 2019-09-25)
PROC: 0BH17EZ Insertion of Endotracheal Airway into Trachea, Via Natural or Artificial Opening (ICD-10-PCS; 2019-09-25)
PROC: B54BZZA Ultrasonography of Right Lower Extremity Veins, Guidance (ICD-10-PCS; 2019-09-25)
PROC: 06HY33Z Insertion of Infusion Device into Lower Vein, Percutaneous Approach (ICD-10-PCS; 2019-09-25)
PROC: 02HV33Z Insertion of Infusion Device into Superior Vena Cava, Percutaneous Approach (ICD-10-PCS; 2019-09-26)
PROC: B548ZZA Ultrasonography of Superior Vena Cava, Guidance (ICD-10-PCS; 2019-09-26)
DX: J96.00 Acute respiratory failure, unspecified whether with hypoxia or hypercapnia (principal); N17.0 Acute kidney failure with tubular necrosis; E43 Unspecified severe protein-calorie malnutrition; J69.0 Pneumonitis due to inhalation of food and vomit; J68.0 Bronchitis and pneumonitis due to chemicals, gases, fumes and vapors; I50.32 Chronic diastolic (congestive) heart failure; E87.4 Mixed disorder of acid-base balance; F11.20 Opioid dependence, uncomplicated; I13.0 Hypertensive heart and chronic kidney disease with heart failure and stage 1 through stage 4 chronic kidney disease, or unspecified chronic kidney disease; R65.10 Systemic inflammatory response syndrome (SIRS) of non-infectious origin without acute organ dysfunction; J06.9 Acute upper respiratory infection, unspecified; N18.9 Chronic kidney disease, unspecified; I27.20 Pulmonary hypertension, unspecified; D64.9 Anemia, unspecified; E03.9 Hypothyroidism, unspecified; E05.90 Thyrotoxicosis, unspecified without thyrotoxic crisis or storm; E11.22 Type 2 diabetes mellitus with diabetic chronic kidney disease; E78.5 Hyperlipidemia, unspecified; E87.5 Hyperkalemia; F10.10 Alcohol abuse, uncomplicated; F17.200 Nicotine dependence, unspecified, uncomplicated; F32.9 Major depressive disorder, single episode, unspecified; F41.9 Anxiety disorder, unspecified; F14.10 Cocaine abuse, uncomplicated; I25.10 Atherosclerotic heart disease of native coronary artery without angina pectoris; M19.90 Unspecified osteoarthritis, unspecified site; Z79.51 Long term (current) use of inhaled steroids; Z79.82 Long term (current) use of aspirin; Z79.899 Other long term (current) drug therapy; Z86.73 Personal history of transient ischemic attack (TIA), and cerebral infarction without residual deficits; Z99.81 Dependence on supplemental oxygen; Z68.35 Body mass index [BMI] 35.0-35.9, adult
CPT/HCPCS: 36415; 36600; 71045; 76770; 76937; 80048; 80053; 80061; 80202; 80305; 80320; 81003; 82375; 82550; 82805; 83605; 83735; 83880; 84145; 84439; 84443; 84478; 84481; 84484; 85025; 86038; 86160; 87070; 87804; 92610; 93005; 93306; 94002; 94003; 94640; 99291; C1725; C9113; J1650; J1956; J2060; J2270; J2543; J2704; J2920; J2930; J3370; J3475; J3490; J7030; J7512; J7626; G0480

== ENCOUNTER 2019-10-28 00:42 | Inpatient (IN) | payer MEDICARE, MEDICAID ==
[~2019-10-28] VITALS: Ht 160 cm; Wt 70.3 kg
[2019-10-28] VITALS (8 sets, daily range): BP systolic 113–149; BP diastolic 54–87
[~2019-10-28 00:42] MED LIST changes: -AMLO10TA80 MT; -MONT10TA24 PO; +MONT10TA26 PO
[2019-10-28] MEDS ORDERED: IPRATROPIUM BROMIDE (0.02%) 0.5MG/2.5ML NEB HHN STA (00:51)
[2019-10-28] MEDS ORDERED: METHYLPREDNISOLONE SOD SUCC 125 MG/2 ML VIAL IV STA (00:51)
[2019-10-28] MEDS ORDERED: MAGNESIUM 2 G PREMIX 50 ML IV STA (00:51)
[2019-10-28] MEDS ORDERED: ALBUTEROL (0.083%) 2.5MG/3ML NEB HHN STA (00:51)
[2019-10-28 01:07] LABS: CHLORIDE 103 mEq/L (98-107)
[2019-10-28 01:15] LABS: HEMOGLOBIN. 11.1 g/dL (12.0-16.0); MEAN CORPUSCULAR HEMOGLOBIN 26.4 pg (28.0-32.0); PLATELET 348 x1000/uL (130-400); RED BLOOD CELL COUNT 4.22 mill/uL (4.2-5.4); RED CELL DISTRIBUTION WIDTH 17.3 % (11.6-14.6)
[2019-10-28 01:47] LABS: NUCLEATED RED BLOOD CELLS 1 /100 WBC
[2019-10-28 01:48] LABS: PLATELET ESTIMATE NORMAL
[2019-10-28] MEDS ORDERED: DOCUSATE SODIUM 100MG CAPSULE PO PRN (09:45)
[2019-10-28] MEDS ORDERED: ACETAMINOPHEN 325MG TABLET PO PRN (09:45)
[2019-10-28] MEDS ORDERED: GUAIFENESIN 200MG/10ML SUGAR FREE UDC PO PRN (09:45)
[2019-10-28] MEDS ORDERED: NA PHOS,M-B/NA PHOS,DI-BA ENEMA 118ML PR PRN (09:45)
[2019-10-28] MEDS ORDERED: CLONIDINE 0.1MG TABLET PO PRN (09:45)
[2019-10-28] MEDS ORDERED: DIPHENHYDRAMINE 50MG/ML VIAL IV PRN (09:45)
[2019-10-28] MEDS ORDERED: MAGNESIUM/ALUMINUM HYDROXIDE/SIMETHICONE 30ML UDC PO PRN (09:45)
[2019-10-28] MEDS ORDERED: LORAZEPAM 2MG/ML CPJ IV PRN (09:45)
[2019-10-28] MEDS ORDERED: MORPHINE SULFATE 2 MG/ML CPJ (NOT FOR IM USE) IV PRN (09:45)
[2019-10-28] MEDS ORDERED: ONDANSETRON HCL 4MG/2ML INJ IV PRN (09:45)
[2019-10-28] MEDS ORDERED: ENOXAPARIN 40MG/0.4ML SYR SUBCUT SCH (09:52)
[2019-10-28] MEDS ORDERED: LEVOFLOXACIN 500MG PREMIX 100 ML IV NR (11:00)
[2019-10-28] MEDS: METHYLPREDNISOLONE SOD SUCC 125 MG/2 ML VIAL IV SCH ×3 (11:39→20:41)
[2019-10-28] MEDS: HYDROCODONE/ACETAMINOPHEN 5/325MG TABLET PO PRN (20:42)
[2019-10-29] VITALS (9 sets, daily range): BP systolic 127–152; BP diastolic 58–93
[2019-10-29] MEDS: IPRATROPIUM/ALBUTEROL 0.5-3(2.5)MG/3ML NEB NEB PRN ×2 (00:33→11:40)
[2019-10-29] MEDS: METHYLPREDNISOLONE SOD SUCC 125 MG/2 ML VIAL IV SCH ×2 (04:07→08:48)
[2019-10-29 06:46] LABS: HEMOGLOBIN. 9.7 g/dL (12.0-16.0); MEAN CORPUSCULAR HEMOGLOBIN 26.3 pg (28.0-32.0); MEAN CORPUSCULAR VOLUME 83.8 fL (81.0-99.0); MEAN PLATELET VOLUME 8.6 fl (7.4-10.4); PLATELET 298 x1000/uL (130-400); RED CELL DISTRIBUTION WIDTH 17.7 % (11.6-14.6)
[2019-10-29 07:04] LABS: CHLORIDE 103 mEq/L (98-107)
[2019-10-29 07:17] LABS: HDL CHOLESTEROL 78 mg/dL (40-59); LDL CHOLESTEROL 73 mg/dL (5-100); T4 FREE 1.29 ng/dL (0.76-1.46)
[2019-10-29] MEDS: ENOXAPARIN 30MG/0.3ML SYR SUBCUT SCH (08:49)
[2019-10-29] MEDS: ASPIRIN 81MG EC TABLET PO SCH (08:49)
[2019-10-29] MEDS ORDERED: SODIUM POLYSTYRENE SULFONATE 15 G/60 ML BOT PO NR (10:00)
[2019-10-29 11:01] LABS: PLATELET ESTIMATE NORMAL
[2019-10-29] MEDS: LEVOFLOXACIN 250MG PREMIX 50 ML IV SCH (13:09)
[2019-10-29] MEDS: METHYLPREDNISOLONE SOD SUCC 40 MG/ML VIAL IV SCH (17:26)
[2019-10-29] MEDS: IPRATROPIUM/ALBUTEROL 0.5-3(2.5)MG/3ML NEB HHN SCH ×2 (18:46→19:54)
[2019-10-29] MEDS: BUDESONIDE 0.5MG/2ML NEB HHN SCH (19:53)
[2019-10-30] VITALS (10 sets, daily range): BP systolic 111–144; BP diastolic 65–106
[2019-10-30] MEDS: IPRATROPIUM/ALBUTEROL 0.5-3(2.5)MG/3ML NEB HHN SCH ×7 (00:02→23:36)
[2019-10-30] MEDS: METHYLPREDNISOLONE SOD SUCC 40 MG/ML VIAL IV SCH ×3 (01:55→17:41)
[2019-10-30] MEDS: HYDROCODONE/ACETAMINOPHEN 5/325MG TABLET PO PRN (02:21)
[2019-10-30 06:42] LABS: HEMATOCRIT. 27.8 % (36.0-48.0); HEMOGLOBIN. 8.9 g/dL (12.0-16.0); MEAN CORPUSCULAR HEMOGLOBIN 26.5 pg (28.0-32.0); MEAN CORPUSCULAR VOLUME 82.4 fL (81.0-99.0); MEAN PLATELET VOLUME 8.4 fl (7.4-10.4); PLATELET 319 x1000/uL (130-400); RED BLOOD CELL COUNT 3.38 mill/uL (4.2-5.4); RED CELL DISTRIBUTION WIDTH 17.5 % (11.6-14.6)
[2019-10-30] MEDS: BUDESONIDE 0.5MG/2ML NEB HHN SCH ×2 (08:13→21:12)
[2019-10-30] MEDS: ENOXAPARIN 30MG/0.3ML SYR SUBCUT SCH (08:59)
[2019-10-30] MEDS: ASPIRIN 81MG EC TABLET PO SCH (08:59)
[2019-10-30] MEDS: LEVOFLOXACIN 250MG PREMIX 50 ML IV SCH ×2 (10:34→17:33)
[2019-10-30 12:43] LABS: NUCLEATED RED BLOOD CELLS 2 /100 WBC; PLATELET ESTIMATE NORMAL
[2019-10-30 19:44] LABS: *AMPHETAMINES SCREEN URINE NEGATIVE (NEGATIVE); *BARBITURATES SCREEN URINE NEGATIVE (NEGATIVE); *BENZODIAZEPINES SCREEN URINE NEGATIVE (NEGATIVE); *COCAINE SCREEN URINE NEGATIVE (NEGATIVE)
[2019-10-30 19:45] LABS: CANNABINOID URINE SCREEN NEGATIVE (NEGATIVE); OPIATES URINE SCREEN PRESUMTIVE POSITIVE (NEGATIVE); PHENCYCLIDINE URINE SCREEN NEGATIVE (NEGATIVE)
[2019-10-31] VITALS (10 sets, daily range): BP systolic 121–147; BP diastolic 58–85
[2019-10-31] MEDS: METHYLPREDNISOLONE SOD SUCC 40 MG/ML VIAL IV SCH ×2 (02:28→09:03)
[2019-10-31] MEDS: HYDROCODONE/ACETAMINOPHEN 5/325MG TABLET PO PRN ×2 (02:41→09:20)
[2019-10-31] MEDS: IPRATROPIUM/ALBUTEROL 0.5-3(2.5)MG/3ML NEB HHN SCH ×4 (03:35→16:11)
[2019-10-31] MEDS: BUDESONIDE 0.5MG/2ML NEB HHN SCH (08:07)
[2019-10-31] MEDS: ASPIRIN 81MG EC TABLET PO SCH (08:48)
[2019-10-31] MEDS: ENOXAPARIN 30MG/0.3ML SYR SUBCUT SCH (08:50)
[2019-10-31 16:10] LABS: METHADONE URINE SCREEN NEGATIVE (NEGATIVE)
== END 2019-10-31 17:25 | DRG 177 ==
LOC: ER 00:42 → 3WST 04:41 → EDBEDREQSVC 04:45 → EDBEDREQ 04:45 → EDBEDREQTM 04:45 → ENRESERV 07:30 → 3WST 08:48
PROVIDERS: ADMIT Internal Medicine; ATTEND Internal Medicine
PROC: 5A09357 Assistance with Respiratory Ventilation, Less than 24 Consecutive Hours, Continuous Positive Airway Pressure (ICD-10-PCS; principal; 2019-10-28)
DX: J69.0 Pneumonitis due to inhalation of food and vomit (principal); J96.20 Acute and chronic respiratory failure, unspecified whether with hypoxia or hypercapnia; J44.1 Chronic obstructive pulmonary disease with (acute) exacerbation; R65.10 Systemic inflammatory response syndrome (SIRS) of non-infectious origin without acute organ dysfunction; I50.32 Chronic diastolic (congestive) heart failure; N17.9 Acute kidney failure, unspecified; F11.20 Opioid dependence, uncomplicated; I13.0 Hypertensive heart and chronic kidney disease with heart failure and stage 1 through stage 4 chronic kidney disease, or unspecified chronic kidney disease; E46 Unspecified protein-calorie malnutrition; E78.5 Hyperlipidemia, unspecified; E87.5 Hyperkalemia; M19.90 Unspecified osteoarthritis, unspecified site; I27.20 Pulmonary hypertension, unspecified; N18.9 Chronic kidney disease, unspecified; F32.9 Major depressive disorder, single episode, unspecified; F41.9 Anxiety disorder, unspecified; F10.10 Alcohol abuse, uncomplicated; F14.90 Cocaine use, unspecified, uncomplicated; D64.9 Anemia, unspecified; F17.200 Nicotine dependence, unspecified, uncomplicated; E05.90 Thyrotoxicosis, unspecified without thyrotoxic crisis or storm; Z79.82 Long term (current) use of aspirin; Z86.73 Personal history of transient ischemic attack (TIA), and cerebral infarction without residual deficits; Z99.81 Dependence on supplemental oxygen; Z79.899 Other long term (current) drug therapy; Z68.27 Body mass index [BMI] 27.0-27.9, adult
CPT/HCPCS: 36415; 71045; 80048; 80053; 80061; 80305; 83880; 84439; 84443; 84484; 85025; 93005; 94640; 94644; 94660; 96365; 96375; 99291; J1650; J1956; J2920; J2930; J3475; J7626

== ENCOUNTER → 2020-06-06 | Outpatient (CLI) | payer MEDICARE, MEDICAID ==
[2020-06-06 09:01] LABS: BASOPHILS % 0.6 % (0.0-2.0); EOSINOPHILS % 1.4 % (0.0-5.0); HEMATOCRIT. 25.3 % (36.0-48.0); HEMOGLOBIN. 7.6 g/dL (12.0-16.0); LYMPHOCYTES % 11.7 % (20.0-50.0); MEAN CORPUSCULAR VOLUME 83.5 fL (81.0-99.0); MEAN PLATELET VOLUME 8.5 fl (7.4-10.4); MONOCYTES % 8.2 % (2.0-8.0); NEUTROPHILS % 78.1 % (40.0-76.0); PLATELET 356 x1000/uL (130-400); RED BLOOD CELL COUNT 3.03 mill/uL (4.2-5.4)
[2020-06-06 09:05] LABS: CHLORIDE 103 mEq/L (98-107)
[2020-06-06 09:10] LABS: PARTIAL THROMBOPLASTIN TIME 29.1 sec (23.4-31.0); PROTHROMBIN TIME 10.4 sec (9.6-11.0)
== END | disposition home or self-care (01) ==
LOC: LAB 08:24
PROVIDERS: ATTEND Internal Medicine Critical Care Medicine
DX: D68.2 Hereditary deficiency of other clotting factors (principal); R73.09 Other abnormal glucose
CPT/HCPCS: 36415; 80053; 85025

== ENCOUNTER → 2020-06-09 | Outpatient (CLI) | payer MEDICARE, MEDICAID | END | disposition home or self-care (01) | LOC: NM 07:16 | PROVIDERS: ATTEND Internal Medicine Cardiovascular Disease | DX: Z01.818 Encounter for other preprocedural examination (principal); R06.02 Shortness of breath; I26.99 Other pulmonary embolism without acute cor pulmonale | CPT/HCPCS: 78452; 93017; 93306; A9500 ==

== ENCOUNTER → 2020-06-09 | Outpatient (CLI) | payer MEDICARE, MEDICAID ==
[~2020-06-09] MED LIST changes: +REGADENOSON 0.4 MG/5 ML IV ONE
== END | disposition home or self-care (01) ==
LOC: RAD 07:47
PROVIDERS: ATTEND Internal Medicine Critical Care Medicine
DX: Z01.812 Encounter for preprocedural laboratory examination (principal); J96.11 Chronic respiratory failure with hypoxia
CPT/HCPCS: 71045; J2785